=== PATIENT | male | born 1960 | race Caucasian/White ===

== ENCOUNTER 2017-05-30 10:44 | Inpatient (IN) ==
--- NOTE | 2017-05-30 11:06 | Anesthesia Evaluation PreOp ---
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 endartectomy 2015, fem-fem BPG 2013) Alcohol Use: heavy, recent Drug use: none Medications and Allergies Clopidogrel [Plavix] 75 mg PO DAILY #30 tablet 09/25/15 [Rx] Albuterol Sulfate [Ventolin Hfa] 18 gm IH 05/24/17 [History] Aspirin [Lo-Dose Aspirin EC] 81 mg PO 05/24/17 [History] Budesonide/Formoterol 160/4.5 [Symbicort 160/4.5] 2 puff IH BIDR 05/24/17 [ History] Famotidine [Pepcid] 40 mg PO DAILY 05/24/17 [History] Ipratropium/Albuterol Neb [Duoneb] 3 ml IH Q6HR PRN 05/24/17 [History] Metoprolol [Lopressor] 25 mg PO BID 05/24/17 [History] Nitroglycerin [Nitrostat] 0.4 mg SL Q5-6MIN PRN 05/24/17 [History] Oxycodone HCl 5 mg PO Q6H PRN #10 tablet 05/24/17 [Rx] Tiotropium [place] [Spiriva Respimat] 4 gm IH DAILY 05/24/17 [History] 3 Allergy/AdvReac Type Severity Reaction Status Date / Time acetaminophen [From Tylenol] AdvReac Nausea Verified 05/24/17 07:29 - Meds/Allergy Pre-op Review Medications Reviewed: Yes Allergies Reviewed: Yes Beta Blockers on Current Med List: Yes If Beta Blockers taken, Date/Time (Last Dose taken): - @ 1400hrs Anesthesia Results - Labs Laboratory Tests 05/16/17 05/16/17 05/16/17 13:45 13:45 13:45 Hgb 15.3 Hct 45.1 Plt Count 199 PT 11.3 INR 1.1 APTT 31.2 Sodium 144 Potassium 4.8 H BUN 9 Creatinine 0.79 - Imaging EKG: report reviewed (SINUS RHYTHM BORDERLINE RIGHT AXIS DEVIATION) Additional studies: echo 07/01: Impressions: LVEF 45%. Normal LV chamber size and wall thickness. Mild global left ventricular systolic dysfunction. Mild left ventricular diastolic dysfunction. Normal right ventricular structure and function. No evidence of pulmonary hypertension. No significant valvular dysfunction. 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
[2017-05-30] MEDS ORDERED: Vancomycin 1,000 MG VIAL ONE (11:34)
[2017-05-30] MEDS ORDERED: Heparin 1,000 UNITS/500 mL NS 500 ML ONE ×2 (11:34→11:39)
[2017-05-30] MEDS ORDERED: Acetaminophen IV 1,000 MG/100 ML INFUS..BTL ONE (11:35)
[2017-05-30] MEDS ORDERED: Lidocaine -MPF 0.5% 50 ML VIAL ONE (11:35)
[2017-05-30] MEDS ORDERED: Albuterol 2.5 MG/3 ML NEBULIZER IH ONE ×3 (11:38→12:23)
[2017-05-30] MEDS ORDERED: Vancomycin 750 MG in D5% in Water 250 ML IVPB ONE ×3 (11:38→23:30)
[2017-05-30] MEDS ORDERED: CeFAZolin Syr 2,000MG/20 ML 2,000 MG/20 ML SYRINGE IVPB ONE (11:38)
[2017-05-30] MEDS ORDERED: Lidocaine -MPF 1% 2 ML VIAL ID ONE ×2 (11:38→11:56)
[2017-05-30] MEDS ORDERED: Ondansetron 4 MG/2 ML VIAL ONE (11:39)
[2017-05-30] MEDS ORDERED: *HR* Propofol 200 MG/20 ML VIAL IVP ONE (11:39)
[2017-05-30] MEDS ORDERED: *HR* Succinylcholine 200 MG/10 ML VIAL IVP ONE (11:39)
[2017-05-30] MEDS ORDERED: Dexamethasone 4 MG/ML VIAL ONE (11:39)
[2017-05-30] MEDS ORDERED: *HR* Midazolam HCl 2 MG/2 ML VIAL ONE (11:39)
[2017-05-30] MEDS ORDERED: *HR* FentaNYL (PF) 100 MCG/2 ML VIAL ONE (11:40)
[2017-05-30] MEDS ORDERED: Albuterol 2.5 MG/3 ML NEBULIZER ONE (11:43)
[2017-05-30] MEDS ORDERED: Ringers Solution, Lactated 1,000 ML IVC SCH (11:45)
--- NOTE | 2017-05-30 11:49 | History & Physical Report ---
Date of Encounter: 05/30/17 Time of Encounter: 11:45 24 Hour HP Update - Instructions Instructions: If the History and Physical is less than 30 days old and was completed prior to A.M. admission and or procedure and has NOT been updated on calendar day of procedure please complete this update prior to performing procedure. - Update Patient reports changes in Medical Condition: No Changes in examination, assessment, or condition: No Changes in Medication: No Preop tests/diagnostics Reviewed: Yes Surgery Remains Indicated: Yes Consent for Planned Operative Procedure(s) Verified: Yes - Pre-Operative Checklist Preoperative Checklist Indicated: Yes Prophylactic Antibiotic Ordered: Yes (Vancomycin due to MRSA risk) Home Medications Include Beta Radha: Yes Beta Radha Taken Today (Day of Surgery): Yes Beta Radha Taken Yesterday (Day Prior to Surgery): Yes Is VTE Prophylaxis Indicated?: Yes
[2017-05-30] MEDS ORDERED: *HR* Labetalol 100 MG/20 ML MDV ONE (12:15)
[2017-05-30] MEDS ORDERED: Lidocaine -MPF 2% 2 ML VIAL ONE (12:16)
[2017-05-30] MEDS ORDERED: *HR* Labetalol 20 MG/4 ML SYRINGE IVP PRN ×2 (12:23→16:33)
[2017-05-30] MEDS ORDERED: *HR* Meperidine 25 MG/ML SYRINGE IVP PRN (12:23)
[2017-05-30] MEDS ORDERED: *HR* Promethazine 25 MG/ML VIAL IVP PRN (12:23)
[2017-05-30] MEDS ORDERED: *HR* HYDROmorphone (PF) 1 MG/ML SYRINGE IVP PRN (12:23)
[2017-05-30] MEDS: Aspirin 81 MG TAB.CHEW PO ONE ×2 (12:31→12:33)
[2017-05-30] MEDS ORDERED: *HR* Magnesium Sulfate 1 GM/2 ML VIAL ONE (13:31)
[2017-05-30] MEDS ORDERED: Ketorolac 30 MG/ML VIAL ONE (14:02)
--- NOTE | 2017-05-30 14:45 | Anesthesia Procedures ---
Date of Encounter: 05/30/17 Time of Encounter: 12:45 Procedures: Anesthesia - Arterial Line Consent obtained: written consent Time out performed: Yes Sedation: Versed (mg): 2 Supplemental Oxygen via Nasal Cannula (L/min): 2 Technique Used: sterile prep, direct puncture technique Post-Procedure: line taped into place, dry sterile dressing placed Patient tolerated procedure: no complications Complications: none Site: Radial R Vitals: vss Comments: left radial arterial line attempted by SRNA, unsuccessful. Dressing applied. No issues.
--- NOTE | 2017-05-30 15:27 | Operative Note ---
Date of procedure: 05/30/17 Pre-op diagnosis: Peripheral vascular disease with disabling claudication Post-op diagnosis: same Procedure: Right iliofemoral endarterectomy with bovine pericardial patch angioplasty. Complications: None Anesthesia: HALEYA Surgeon: Job Quinn Estimated blood loss (cc): 100 Specimen: right lower extremity plaque Condition: stable Disposition: PACU Procedure in Detail: Indications: The patient is a 56 year old male with a history of diabetes, hypertension, hyperlipidemia, coronary artery disease and tobacco abuse. He was noted to have severe disabling claudication and angiography revealed severe right iliac and femoral artery stenosis. Revascualrization was recommended to reduce his symptoms. Procedure: The patient was identified in the preoperative area. The risks, benefits and alternatives of the procedure were discussed and all questions were answered. The patient was taken to the operating room and placed in the supine position on the operating room table. After the induction of general endotracheal anesthesia, the patient was cleaned and draped in the normal sterile fashion. An oblique incision was made sharply through his prior scar over the right femoral vessels. Hemostasis was obtained with electrocautery. Through a process of blunt, sharp and electrocautery dissection, the distal external iliac , deep and superficial femoral arteries were dissected and surrounded with vessel loops. The patient received a bolus of heparin. After waiting adequate time for the heparin to circulate, the vessels were occluded with the vessel loops. A longitudinal arteriotomy was in the common femoral artery and extended proximally into the distal external iliac artery. The plaque was noted to be firm and have multiple carmela of severe stenosis. An iliofemoral artery endarterectomy were then performed with a dental freer. Proximal and distal endpoints were inspected and no elevated flaps were noted. The vessels were flushed with heparin. A bovine pericardial patch was cut to fit the arteriotomy and was sutured in place with a running 6-0 Prolene suture. Prior to completing the patch, the vessels were flushed and infused with heparinized saline. The patch was completed and flow was restored. A polyphasic signal was identified in the superficial femoral and deep femoral arteries. The wound was irrigated with antibiotic containing saline. Hemostasis was obtained with electrocautery. Platelet rich and platelet poor plasma were infused into the wound. The wound was reapproximated with 2-0 and 3 -0 vicryl. Skin was reapproximated with 3-0 Monocryl. Sterile dressings were applied. The patient was extubated and taken to the recover room in stable condition.
--- NOTE | 2017-05-30 16:14 | Anesthesia Evaluation Post Op ---
Date of Encounter: 05/30/17 Time of Encounter: 16:11 - Vital Signs Vital Signs: Vital Signs/O2 Sat, Most Current Temp Pulse Resp BP Pulse Ox 98.1 F 65 18 147/94 96 05/30/17 15:48 05/30/17 15:58 05/30/17 15:58 05/30/17 15:58 05/30/17 15:58 - Lungs Lungs: Clear Ascult./Percussion - Airway Airway: Non-obstructed - Cardiovascular Regular Rate - Mental Status Mental Status: Alert & Oriented, Answers Appropriately - Pain Pain Scale: 2 Pain Scale used: Numeric (1 - 10) - Nausea Vomiting Nausea Vomiting: Not Present - Hydration Hydration: NPO, Ugarte catheter - Discharge PostOp Status: Transfer Patient to floor
[2017-05-30] MEDS ORDERED: Naloxone 0.4 MG/ML INJ IVP PRN (16:33)
[2017-05-30] MEDS ORDERED: Nitroglycerin 0.4 MG TAB.SUBL SL PRN (16:33)
[2017-05-30] MEDS ORDERED: Ondansetron 4 MG/2 ML VIAL IVP PRN (16:33)
[2017-05-30] MEDS ORDERED: *HR* OxyCODONE Immed Rel 5 MG TABLET PO PRN ×2 (16:33)
[2017-05-30] MEDS ORDERED: Ipratropium/Albuterol Neb 3 ML IH PRN (16:33)
[2017-05-30] MEDS ORDERED: *HR* Morphine 2 MG/ML SYRINGE IVP PRN (16:33)
[2017-05-30] MEDS: CeFAZolin Premix DUPLEX 2,000 MG/50 ML BAG IVPB SCH (17:20)
[2017-05-30] MEDS ORDERED: *HR* Heparin 5,000 UNIT/ML VIAL SQ SCH (18:00)
[2017-05-30] MEDS: *HR* Heparin 5,000 UNIT/ML VIAL SQ SCH (18:11)
[2017-05-30] MEDS: *HR* Metoprolol 5 MG/5 ML VIAL IVP SCH (18:11)
[2017-05-30] MEDS ORDERED: Budesonide/Formoterol 160/4.5 MDI IH SCH (22:00)
[2017-05-31] MEDS: CeFAZolin Premix DUPLEX 2,000 MG/50 ML BAG IVPB SCH (01:03)
[2017-05-31] MEDS: *HR* Metoprolol 5 MG/5 ML VIAL IVP SCH ×2 (01:03→05:59)
[2017-05-31] MEDS: *HR* Heparin 5,000 UNIT/ML VIAL SQ SCH (06:24)
[2017-05-31 06:32] LABS: Basophils % 0.1 %; Hematocrit 39.9 % (37.5-50.1); Hemoglobin 13.8 g/dL (12.9-16.9); Immature Granulocytes % 0.6 % (0-4); Lymphocytes # 1.1 K/mcL (0.6-4.6); Lymphocytes % 14.5 %; Mean Corpuscular HGB Conc 34.6 g/dL (31.6-35.5); Mean Corpuscular Hemoglobin 34.8 pg (28.0-33.3); Mean Corpuscular Volume 100.8 fL (83.0-100.0); Mean Platelet Volume 11.4 fL (9.4-12.4); Monocytes # 0.4 K/mcL (0.0-1.3); Monocytes % 5.6 %; Neutrophils # 6.1 K/mcL (1.6-8.9); Platelet Count 134 K/mcL (140-400); Red Blood Count 3.96 M/mcL (4.19-5.50); Red Cell Distribution Width 14.1 % (11.5-14.5); Segmented Neutrophils % 79.2 %
[2017-05-31 06:42] LABS: BUN/Creatinine Ratio 9 (6-26); Blood Urea Nitrogen 7 mg/dL (8-26); Calcium 8.6 mg/dL (8.6-10.8); Carbon Dioxide 28 mEq/L (19-29); Chloride 102 mEq/L (98-109); Glucose 148 mg/dL (70-99); Osmolality,Calculated 291 (280-300); Potassium 4.3 mEq/L (3.5-4.5); Sodium 140 mEq/L (136-145); eGFR For African Americans > 60 (> 60); eGFR For Non-African Americans > 60 (> 60)
--- NOTE | 2017-05-31 07:16 | Discharge Summary ---
Date of Encounter: 05/31/17 Time of Encounter: 08:20 - Discharge Diagnosis (1) Atherosclerosis of [place] arteries of extremities with intermittent claudication, bilateral legs Priority: Primary Status: Chronic Comments: The patient is postoperative day #1 after a right iliofemoral endarterectomy. He reports that his leg feels better. His wound is healing. His compartments are soft and his pedal signals are present. He will be discharged today. (2) Hyperlipemia, mixed Priority: Secondary Status: Chronic (3) Tobacco abuse Priority: Secondary Status: Chronic (4) Atherosclerosis of [place] coronary artery of [place] heart without angina pectoris Priority: Secondary Status: Chronic (5) Essential hypertension Priority: Secondary Status: Chronic - Discharge Medications Prescriptions: OxyCODONE Immed Rel [Roxicodone 5 MG] 5 mg PO Q6HR PRN #20 tablet PRN Reason: POSTOPERATIVE PAIN Home Medications: Clopidogrel [Plavix] 75 mg PO DAILY #30 tablet 09/25/15 [Rx] Albuterol Sulfate [Ventolin Hfa] 2 puff IH Q4H PRN 05/24/17 [History] Aspirin [Lo-Dose Aspirin EC] 81 mg PO DAILY 05/24/17 [History] Budesonide/Formoterol 160/4.5 [Symbicort 160/4.5] 2 puff IH BIDR 05/24/17 [ History] Famotidine [Pepcid] 40 mg PO DAILY 05/24/17 [History] Ipratropium/Albuterol Neb [Duoneb] 3 ml IH Q6HR PRN 05/24/17 [History] Metoprolol [Lopressor] 25 mg PO BID 05/24/17 [History] Nitroglycerin [Nitrostat] 0.4 mg SL Q5-6MIN PRN 05/24/17 [History] Tiotropium [place] [Spiriva Respimat] 4 gm IH DAILY 05/24/17 [History] Simvastatin [Zocor] 40 mg PO HS 05/30/17 [History] OxyCODONE Immed Rel [Roxicodone 5 MG] 5 mg PO Q6HR PRN #20 tablet 05/31/17 [Rx] Allergies/Adverse Reactions: 3 Allergy/AdvReac Type Severity Reaction Status Date / Time acetaminophen [From Tylenol] AdvReac Nausea Verified 05/30/17 12:22 Date of admission: 05/30/17 16:31 Primary care physician: Saroj Berg MD Procedure(s) Performed: Right iliofemoral endarterectomy. Discharging clinician: Job Quinn Anticipated date of discharge: 05/31/17 - Patient Status Disposition: Home, Self-Care Condition: Good Functional capacity at discharge: independent ambulation Overall status at discharge: patient is back to baseline - Discharge Instructions Instructions: Peripheral Vascular Disorders (GEN) Follow Up With: Saroj Berg MD [Primary Care Provider] - 06/21/17 4:30 pm Job Quinn MD [Partnered Physician] - 06/27/17 1:10 pm Additional Instructions: May remove bandage and shower 06/01/17. Wash wound gently and pat to dry. Apply dry gauze to wound daily for 7 days. No tub baths or swimming until 06/20/17. Call Dr. Quinn at [phone] with questions or concerns. - Diet and Activity Activity: increase activity as tolerated Diet: advance to your usual diet - Hospital Course Hospital course: Mr. Villa is a 56 year old male was admitted on 05/30/17. He underwent a right iliofemoral endarterectomy due to disabling claudication. He tolerated the procedure well and was discharged to home in stable condition on postoperative day #1 without complications. Time spent discussing smoking cessation with patient: 3 to 10 minutes - Time Spent with Patient Total time spent providing and/or coordinating discharge services: Exam Vital Signs, Last 4 Hours Temp Pulse Resp BP Pulse Ox 05/31/17 04:20 54 05/31/17 03:57 98.0 F 57 17 118/57 98 General: Present: Conversant HEENT: Present: Pupils equal Cardiac: Present: Reg Rate and Rhythm Lungs: Present: Normal Breath Sounds Neuro: Present: Alert and responsive, No focal deficits noted, Motor nerves grossly intact, Sensory nerves grossly intact Abdomen: Present: Soft Vascular: Present: Normal capillary refill, Pulse, normal (pedal signals present bilaterally), Edema, Surgical incisions (no erythema, no hematoma). Absent: Cyanosis - VTE Documentation of Mechanical Device: Intermittent pneumatic compression device
[2017-05-31 07:56] VITALS: BP 115/69
[2017-05-31] MEDS ORDERED: Aspirin Enteric Coated 81 MG Tablet PO SCH (09:00)
[2017-05-31] MEDS ORDERED: Tiotropium 18 MCG inhalation IH SCH (09:00)
[2017-05-31] MEDS ORDERED: Famotidine 20 MG TABLET PO SCH (09:00)
== END 2017-05-31 13:05 | disposition home or self-care (01) | DRG 169 ==
LOC: SAMDAY 10:44 → 2NNU 16:31
PROVIDERS: ADMIT Surgery; ATTEND Surgery

== ENCOUNTER 2017-10-10 02:34 | Inpatient (IN) ==
--- NOTE | 2017-10-10 04:02 | Emergency Department Note ---
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 Disposition: Admitted As Inpatient Condition: Undetermined Referrals: Gaurav Villeda MD [Primary Care Provider] - Forms: ED Satisfaction Letter Lower Extremity Injury HPI - General Chief Complaint: ED Extremity Injury, Lower Stated Complaint: right leg pain Time Seen by Provider: 10/10/17 02:41 Source: patient, EMS Mode of arrival: EMS Limitations: no limitations Nursing Notes Reviewed: Yes Vital Signs Reviewed: Yes - History of Present Illness HPI Narrative: 57-year-old patient with a history of one pack per day smoker, hyperlipidemia, altherosclerosis with claudication, hypertension he was status post endocardectomy to ma of the right popliteal on 09/14 Dr. Quinn presents to the emergency department via EMS from [facility] for testing for arterial occlusion of the right lower extremity. Patient reported to by [facility] for evaluation of right foot pain, discoloration, coolness and was seen down there where the provider felt that this was an arterial occlusion and he need to be transferred here for a higher level of care. Patient denies fever, chills, shortness of breath, dyspnea, chest pain, edema, abdominal pain, nausea, vomiting. He has a known history of claudication as well as arthrosclerosis, the endocartectomy to the popliteal was recent and since then patient has been on Plavix as well as some dose aspirin 81 mg, and today had an abrupt onset of the pallor, coolness, decreased blood flow to the right lower extremity. Pt Subjective Complaint: foot injury Injury location: Right foot Onset (ago): hour(s) Mechanism of Injury: unknown Context: other Place: home Improves with: nothing Worsens with: nothing Associated symptoms: Reports: ambulatory - Related Data Home Medications Medication Instructions Recorded Confirmed Albuterol Sulfate [Ventolin Hfa] 2 puff IH Q4H PRN 05/24/17 10/10/17 Aspirin [Lo-Dose Aspirin EC] 81 mg PO DAILY 05/24/17 10/10/17 Budesonide/Formoterol 160/4.5 2 puff IH BIDR 05/24/17 10/10/17 [Symbicort 160/4.5] Ipratropium/Albuterol Neb [Duoneb] 3 ml IH Q6HR PRN 05/24/17 10/10/17 Metoprolol [Lopressor] 25 mg PO BID 05/24/17 10/10/17 Nitroglycerin [Nitrostat] 0.4 mg SL Q5-6MIN PRN 05/24/17 10/10/17 Tiotropium [place] [Spiriva 4 gm IH DAILY 05/24/17 10/10/17 Respimat] Atorvastatin [Lipitor] 40 mg PO HS 09/13/17 10/10/17 Budesonide/Formoterol 160/4.5 2 puff IH BIDR 10/10/17 10/10/17 [Symbicort 160/4.5] Fluticasone/Vilanterol [Breo 1 each IH DAILY 10/10/17 10/10/17 Ellipta 200-25 Mcg INH] Previous Rx's Medication Instructions Recorded Clopidogrel [Plavix] 75 mg PO DAILY #30 tablet 09/25/15 Allergies Allergy/AdvReac Type Severity Reaction Status Date / Time acetaminophen [From Tylenol] AdvReac Nausea Verified 09/13/17 09:11 All systems ED: reviewed and negative except as stated. Review of Systems: As Per HPI Constitutional: Denies: fever, chills, weakness, weight change Cardiovascular: Denies: chest pain, palpitations, dyspnea on exertion, edema, syncope Integumentary: Reports: other (Discoloration of right lower extremity, right foot) Neurological: Reports: numbness, paresthesias (Right foot) Past Medical History - Past Medical History Attestation: Yes The following information was validated with the patient. Source: patient Medical history: Reports: COPD, coronary artery disease, GERD, hyperlipidemia, hypertension, myocardial infarction, other Surgical history: Reports: herniorrhaphy Psychiatric history: Reports: anxiety, depression - Social History Smoking Status: Current every day smoker Smokeless Tobacco Status: No Alcohol use: Reports: heavy, recent Drug use: Reports: none Physical Exam - General Limitations: no limitations General appearance: alert Course Course Narrative: 57-year-old patient with a history of one pack per day smoker, hyperlipidemia, altherosclerosis with claudication, hypertension he was status post endocardectomy to ma of the right popliteal on 09/14 Dr. Quinn presents to the emergency department via EMS from [facility] for testing for arterial occlusion of the right lower extremity. Patient reported to [facility] for evaluation of right foot pain, discoloration, coolness and was seen down there where the provider felt that this was an arterial occlusion and he need to be transferred here for a higher level of care. Patient denies fever, chills, shortness of breath, dyspnea, chest pain, edema, abdominal pain, nausea, vomiting. He has a known history of claudication as well as arthrosclerosis, the endocartectomy to the popliteal was recent and since then patient has been on Plavix as well as some dose aspirin 81 mg, and today had an abrupt onset of the pallor, coolness, decreased blood flow to the right lower extremity. Patient arrived with EMS already on heparin. Well-hydrated male who appears older than stated age in no acute distress. Respirations are easy and even. right foot and ankle with obvious pallor, coolness, inability to locate pulses in DP, TB. We will CTA with runoff as well as ABIs to assess for malocclusion. Prior to patient arriving at our emergency department attending Dr. Miranda spoke with Dr. Fernandez We will bleed there was an occlusion, wanted him started on heparin and that that shows surgery will see him in the morning. - Reevaluation(s) Reevaluation #1: ABIs show severely diminished with right 00.30, left than 1.02. CTA with runoff shows occlusion to right iliac stent, SFA as well as SFA distally. Patient states he would like to go home, educated extensively regarding inability to go home until he sees fascial surgery. Patient reluctantly agrees and discussed the smoking, we will order to do patch at this time. Hospitalist paged for admission. Time: 04:40 Reevaluation #2: Hospitals on for this time, patient right extremity with more color, slightly warmer. Heparin continuous MPs. Hospitalist will admit until vascular surgery able to see. Time: 05:36 Vital Signs Temperature 98 F 10/10/17 02:40 Pulse Rate 83 10/10/17 02:40 Respiratory Rate 28 10/10/17 02:40 Blood Pressure 117/80 10/10/17 02:40 O2 Sat by Pulse Oximetry 95 10/10/17 02:40 Temperature 98 F 10/10/17 02:40 Pulse Rate 80 10/10/17 03:49 Respiratory Rate 20 10/10/17 03:49 Blood Pressure 122/85 10/10/17 03:49 O2 Sat by Pulse Oximetry 96 10/10/17 03:49 Oxygen Delivery Oxygen Delivery Room Air Extremity Injury, Lower - Medical Records Medical records reviewed: Yes I reviewed the patient's medical records. - Lab Data Lab results reviewed: Yes I reviewed the patient's lab results. - Radiology Data Radiology results reviewed: Yes I reviewed the patient's radiology results.
[2017-10-10] MEDS ORDERED: Ipratropium/Albuterol Neb 3 ML IH PRN (05:35)
[2017-10-10] MEDS ORDERED: Naloxone 0.4 MG/ML INJ IVP PRN (05:37)
[2017-10-10] MEDS: Nicotine 21 MG PATCH.TD24 TD SCH ×2 (05:41→09:26)
--- NOTE | 2017-10-10 05:44 | Internal Med History&Physical ---
Date of Encounter: 10/10/17 Time of Encounter: 05:41 Assessment and Plan (1) Acute occlusion of artery of lower extremity due to thrombosis Current visit: No Status: Acute History of PAD, multiple stents, now with acute stent thrombosis. Discussed case extensively with ED physician who had communicated with Dr. Escobar of vascular surgery who will evaluate in the morning. Recommended heparin drip with clinical improvement. Continue dual antiplatelet therapy (2) Essential hypertension Current visit: No Status: Chronic continue med (3) Hyperlipemia, mixed Current visit: No Status: Chronic continue statin (4) Tobacco abuse Current visit: No Status: Chronic Internal Medicine - H&P: HPI Chief complaint: Right foot pain and numbness History of present illness: Mr. Villa is a 57 year old male with a history of severe PAD, hypertension, hyperlipidemia who presents with acute onset ischemic right leg secondary to stent thrombosis. Patient has a long history of peripheral vascular disease status post multiple revascularization procedure. Was most recently seen by Dr. Quinn as of vascular surgery with, Right iliofemoral endarterectomy, Right deep femoral artery endarterectomy, Right lower extremity thrombectomy with 4 [place] catheter on 09/13/17. Patient developed acute pain on the right leg and foot with paresthesia since approximately 7 PM last evening which led to ED presentation. There were concerns for acute ischemic limb. Pain did not improve with time but later got better with heparin drip. Pain rated 10 out of 10, sharp, associated with paresthesia of the foot with decreased foot pulses. Of note patient has been intermittently compliant on dual antiplatelet therapy and has been occasionally taking Plavix alone. CT/CT angio aorta w con runoff IMPRESSION: Multifocal atherosclerotic disease with new occlusion of the right external iliac stent and SFA. There is also a new occlusion of the left SFA with distal reconstitution. Limited evaluation of the infrapopliteal vessels, likely due to contrast bolus. Unchanged thickening of the gastric antrum and pylorus which can be seen with gastritis. Past Med Surg Social Fam HX - Past Medical History Medical history: COPD, coronary artery disease, GERD, hyperlipidemia, hypertension, myocardial infarction, other Psychiatric history: anxiety, depression - Past Surgical History Surgical History: herniorrhaphy - Social History Smoking Status: Current every day smoker Smokeless Tobacco Status: No Alcohol use: heavy, recent Drug use: none - Additional Family History Additional family history: Hypertension Internal Medicine - H&P: Meds Clopidogrel [Plavix] 75 mg PO DAILY #30 tablet 09/25/15 [Rx] Albuterol Sulfate [Ventolin Hfa] 2 puff IH Q4H PRN 05/24/17 [History] Aspirin [Lo-Dose Aspirin EC] 81 mg PO DAILY 05/24/17 [History] Budesonide/Formoterol 160/4.5 [Symbicort 160/4.5] 2 puff IH BIDR 05/24/17 [ History] Ipratropium/Albuterol Neb [Duoneb] 3 ml IH Q6HR PRN 05/24/17 [History] Metoprolol [Lopressor] 25 mg PO BID 05/24/17 [History] Nitroglycerin [Nitrostat] 0.4 mg SL Q5-6MIN PRN 05/24/17 [History] Tiotropium [place] [Spiriva Respimat] 4 gm IH DAILY 05/24/17 [History] Atorvastatin [Lipitor] 40 mg PO HS 09/13/17 [History] Budesonide/Formoterol 160/4.5 [Symbicort 160/4.5] 2 puff IH BIDR 10/10/17 [ History] Fluticasone/Vilanterol [Breo Ellipta 200-25 Mcg INH] 1 each IH DAILY 10/10/17 [ History] 3 Allergy/AdvReac Type Severity Reaction Status Date / Time acetaminophen [From Tylenol] AdvReac Nausea Verified 09/13/17 09:11 All Systems PM: A 10-system review of systems was performed and is negative for pertinent findings except as documented above in the HPI. Review of systems: ROS 14 point review of systems reviewed as best as possible given presentation. Pertinent positive or negative as per HPI or otherwise reviewed as negative - Constitutional Vitals: Temp Pulse Resp BP Pulse Ox 98 F 80 18 99/76 97 10/10/17 02:40 10/10/17 05:40 10/10/17 05:40 10/10/17 05:40 10/10/17 05:40 Exam: General - AAO x 3 Psych - Appropriate affect/speech. No agitation Eyes - GAETANO. Eye lids intact. No scleral icterus Heart - Sinus. RRR. S1 and S2 present. No added HS/murmurs appreciated. No elevated JVD appreciated. Lung - Adequate air entry b/l, No crackles/wheezes appreciated GI - Soft, non-tender. No hepatosplenomegaly/ascites. BS+ - No CVA/suprapubic tenderness or palpable bladder distension Skin, PVD - Diminish right foot pulses with right Toes appears cool. Altered sensation, paresthesia of right leg from burdick downwards. Internal Med - H&P Results - Impressions ITS Impressions Aorta w/Runoff CTA 10/10/17 02:55 IMPRESSION: Multifocal atherosclerotic disease with new occlusion of the right external iliac stent and SFA. There is also a new occlusion of the left SFA with distal reconstitution. Limited evaluation of the infrapopliteal vessels, likely due to contrast bolus. Unchanged thickening of the gastric antrum and pylorus which can be seen with gastritis. D/ / Jimbo Kelley MD / Jimbo Kelley MD Interpreting Provider: Jimbo Kelley MD
[2017-10-10] MEDS ORDERED: *HR* Heparin 5,000 UNIT/ML VIAL IVP ONE (06:43)
[2017-10-10] MEDS ORDERED: *HR* Heparin 5,000 UNIT/ML VIAL IVP PRN ×2 (06:43)
[2017-10-10] MEDS ORDERED: Heparin 25,000 UNIT/500 ML D5W 25,000 UNIT/500 ML BAG IVC SCH (06:45)
--- NOTE | 2017-10-10 06:49 | Emergency Department Note ---
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 Disposition: Admitted As Inpatient Condition: Undetermined Referrals: Gaurav Villeda MD [Primary Care Provider] - Lower Extremity Injury [facility] - General Chief Complaint: ED Extremity Injury, Lower Stated Complaint: right leg pain Time Seen by Provider: 10/10/17 02:41 Source: patient, EMS Mode of arrival: EMS Limitations: no limitations Nursing Notes Reviewed: Yes Vital Signs Reviewed: Yes - History of Present Illness Context: other Place: home Improves with: nothing Worsens with: nothing Associated symptoms: Reports: ambulatory - Related Data Home Medications Medication Instructions Recorded Confirmed Albuterol Sulfate [Ventolin Hfa] 2 puff IH Q4H PRN 05/24/17 10/10/17 Aspirin [Lo-Dose Aspirin EC] 81 mg PO DAILY 05/24/17 10/10/17 Budesonide/Formoterol 160/4.5 2 puff IH BIDR 05/24/17 10/10/17 [Symbicort 160/4.5] Ipratropium/Albuterol Neb [Duoneb] 3 ml IH Q6HR PRN 05/24/17 10/10/17 Metoprolol [Lopressor] 25 mg PO BID 05/24/17 10/10/17 Nitroglycerin [Nitrostat] 0.4 mg SL Q5-6MIN PRN 05/24/17 10/10/17 Tiotropium [place] [Spiriva 4 gm IH DAILY 05/24/17 10/10/17 Respimat] Atorvastatin [Lipitor] 40 mg PO HS 09/13/17 10/10/17 Budesonide/Formoterol 160/4.5 2 puff IH BIDR 10/10/17 10/10/17 [Symbicort 160/4.5] Fluticasone/Vilanterol [Breo 1 each IH DAILY 10/10/17 10/10/17 Ellipta 200-25 Mcg INH] Previous Rx's Medication Instructions Recorded Clopidogrel [Plavix] 75 mg PO DAILY #30 tablet 09/25/15 Allergies Allergy/AdvReac Type Severity Reaction Status Date / Time acetaminophen [From Tylenol] AdvReac Nausea Verified 09/13/17 09:11 Constitutional: Denies: fever, chills, weakness, weight change Cardiovascular: Denies: chest pain, palpitations, dyspnea on exertion, edema, syncope Integumentary: Reports: other (Discoloration of right lower extremity, right foot) Neurological: Reports: numbness, paresthesias (Right foot) Past Medical History - Past Medical History Medical history: Reports: COPD, coronary artery disease, GERD, hyperlipidemia, hypertension, myocardial infarction, other Surgical history: Reports: herniorrhaphy Psychiatric history: Reports: anxiety, depression - Social History Smoking Status: Current every day smoker Smokeless Tobacco Status: No Alcohol use: Reports: heavy, recent Drug use: Reports: none Physical Exam - General Limitations: no limitations General appearance: alert Course Vital Signs Temperature 98 F 10/10/17 02:40 Pulse Rate 83 10/10/17 02:40 Respiratory Rate 28 10/10/17 02:40 Blood Pressure 117/80 10/10/17 02:40 O2 Sat by Pulse Oximetry 95 10/10/17 02:40 Temperature 98 F 10/10/17 02:40 Pulse Rate 80 10/10/17 05:40 Respiratory Rate 18 10/10/17 05:40 Blood Pressure 99/76 10/10/17 05:40 O2 Sat by Pulse Oximetry 97 10/10/17 05:40 Oxygen Delivery Oxygen Delivery Room Air Attestation Statement - Attestation Attestation: I, Gaurav Miranda, examined this patient and my medical decision-making was reviewed with the COST ESTIMATING CLERK/PA/Advanced Practice Nurse/Resident Physician. I agree with the documented findings, disposition and treatment plan as described except to the extent set forth below. 57-year-old male brought to the emergency department from [facility] for further evaluation of likely acute arterial occlusion. I received a call from [facility] describing a pulseless cold right lower extremity that had decreased sensation and no pulse found by Doppler. Patient had recent femoral endarterectomy performed by Dr. Quinn one month ago. He developed acute onset of pain at 7 PM. He is been taking Plavix at home but no other blood thinners. After receiving the call and the patient was still on his way to the hospital I called Dr. Escobar who is on for vascular and described the patient's case and my concerns for an acute arterial occlusion and need for acute surgery. Patient is currently on heparin which was started at an outside facility. Vascular surgeon recommended to continue heparin and evaluate the right lower extremity by RENETTA and CT angiogram of the aorta with runoff for comparison to his previous study. During the evaluation the patient did start to recover normal skin color and sensation to the right lower extremity. Patient was admitted to the hospitalist for further care and evaluation.
[2017-10-10 07:26] LABS: Hematocrit 47.3 % (37.5-50.1); Mean Corpuscular HGB Conc 33.8 g/dL (31.6-35.5); Mean Corpuscular Hemoglobin 33.9 pg (28.0-33.3); Mean Corpuscular Volume 100.2 fL (83.0-100.0); Mean Platelet Volume 11.7 fL (9.4-12.4); Platelet Count 214 K/mcL (140-400); Red Blood Count 4.72 M/mcL (4.19-5.50); Red Cell Distribution Width 14.2 % (11.5-14.5)
[2017-10-10 07:38] LABS: Prothrombin Time 10.7 Seconds (9.4-12.1)
[2017-10-10 07:41] LABS: Activated Partial Thrombo Time 72.8 Seconds (26.0-36.0)
[2017-10-10] MEDS ORDERED: ceFAZolin 2,000 MG in Water for inj. (sterile) 20 ML IVP ONE (09:00)
[2017-10-10] MEDS ORDERED: Breo Ellipta 200-25 Mcg IH SCH (09:00)
[2017-10-10] MEDS ORDERED: Aspirin Enteric Coated 81 MG Tablet PO SCH (09:00)
[2017-10-10] MEDS ORDERED: Nicotine 21 MG PATCH.TD24 TD SCH (09:00)
[2017-10-10] MEDS ORDERED: Tiotropium 18 MCG inhalation IH SCH (09:00)
--- NOTE | 2017-10-10 11:56 | Vascular/Endovasc Consult Note ---
Date of Encounter: 10/10/17 Time of Encounter: 08:45 Assessment and Plan (1) Tobacco abuse Current Visit: Yes Status: Chronic Patient has ongoing tobacco abuse. He was warned that this will lead to further graft thrombosis and eventual limb loss. (2) Essential hypertension Current Visit: Yes Status: Chronic Patient has medical treatment ongoing for hypertension. (3) Arterial occlusion due to arteriosclerosis Current Visit: Yes Status: Acute Recurrent occlusion of right iliofemoral system with severe disease apparently of the right superficial femoral artery. This is now the second recurrence with thrombosis of this right groin which has been operated on 3 times. The overall prognosis remains poor. I suggested that we continue the IV heparin for now. Patient will be taken to surgery later today as an emergency and an attempt at thrombectomy of this area. The patient may require bypass grafting that could include a right femoral-popliteal, a left to right femoral-femoral bypass graft, or an right iliofemoral bypass graft. - History of Present Illness Consult date: 10/10/17 Consult reason: Recurrent right lower extremity ischemia Chief complaint: Right leg pain and numbness History of present illness: Mr. Villa is a 57 year old male Was seen in the emergency room this morning. I was notified of the patient at 1 :30 this morning by the ER as they were in the process of excepting in transferring him from [facility]. Patient states that he had abrupt onset of right lower extremity pain at approximately 7 or 8 PM last night. He states he was sitting in his chair drinking a beer when this occurred. He called his mother a few hours later and then by squad he was taken to the [facility] ER. They could not identify pulse in the right lower extremity and so then the patient was transferred to [facility]. The patient has a very complex and disturbing history of severe lower extremity ischemia. He had an angiogram performed in July 2015 and then in September 2015 underwent a right iliofemoral endarterectomy with patch angioplasty. The patient also had a right external iliac stent placed but the timing of the stent is unclear from the medical record. Then in early May the patient had recurrent symptoms he underwent another angiogram in May 2017. He then went back to the operating room on May 30 for a right iliofemoral endarterectomy with a bovine pericardial patch. Then the patient re-presented to the clinic in August with more right lower extremity symptoms. He was then taken back to the operating room for a right iliofemoral endarterectomy, fundus M is artery endarterectomy, and right lower extremity catheter thrombectomy. All of these procedures and angiogram were performed by Dr. Quinn. This is the first time I met this gentleman. Noninvasive testing today reveals an ankle-brachial index of 0.3 at the right posterior tibial artery and no signal over the dorsalis pedis artery area on the left side the ankle-brachial indexes measured at 1.02. The patient went on to have an aortogram with runoff by CT angiography this morning. I reviewed these images. They demonstrate occlusion of the right external iliac artery stent and right common femoral artery. There is also occlusion of the proximal half to two thirds of the right superficial femoral artery and poor flow through the profunda femoris artery. There is reconstitution of the [id number] popliteal. The patient states that since he was placed on heparin and transferred to [facility] that he has had less pain and numbness though the right foot remains abnormal. Past Med Surg Social Fam HX - Past Medical History Medical history: COPD, coronary artery disease, GERD, hyperlipidemia, hypertension, myocardial infarction, other Psychiatric history: anxiety, depression - Past Surgical History Surgical History: herniorrhaphy, LE stent(s) (Right external iliac artery stent) , vascular surgery (Right iliofemoral endarterectomy with patching and thrombectomy beginning in September 2015, May 2017, and his final operation was in August 2017.) - Social History Smoking Status: Current every day smoker Packs per day: 1 Smokeless Tobacco Status: No Alcohol use: heavy, recent Drug use: none - Family History Father Hx Family Cardiac Disorders: Yes Medications and Allergies Clopidogrel [Plavix] 75 mg PO DAILY #30 tablet 09/25/15 [Rx] Albuterol Sulfate [Ventolin Hfa] 2 puff IH Q4H PRN 05/24/17 [History] Metoprolol [Lopressor] 25 mg PO BID 05/24/17 [History] Nitroglycerin [Nitrostat] 0.4 mg SL Q5-6MIN PRN 05/24/17 [History] Tiotropium [place] [Spiriva Respimat] 4 gm IH DAILY 05/24/17 [History] Cilostazol [Pletal] 100 mg PO BID 10/10/17 [History] Fluticasone/Vilanterol [Breo Ellipta 200-25 Mcg INH] 1 puff IH DAILY 10/10/17 [ History] Ibuprofen [Ibuprofen] 800 mg PO TID PRN 10/10/17 [History] Simvastatin [Zocor] 40 mg PO DAILY 10/10/17 [History] Varenicline Tartrate [Chantix Starting Month NAZARIO] 1 tab PO BID 10/10/17 [History ] 3 Allergy/AdvReac Type Severity Reaction Status Date / Time acetaminophen [From Tylenol] AdvReac Nausea Verified 10/10/17 07:52 All Systems Review: The remainder of the systems were reviewed and are negative Exam Vital Signs, Last 4 Hours Temp Pulse Resp BP Pulse Ox 10/10/17 10:06 97.6 F 77 16 141/93 95 General: Present: Conversant, No Apparent Distress, Other (The patient is an ill -appearing white male who looks older than his stated age. He appears significantly malnourished.) HEENT: Present: Atraumatic, Normocephaly Neck: Present: Right Carotid bruit. Absent: JVD, Left Carotid bruit, Midline deformity, Tracheal deviation Cardiac: Present: Reg Rate and Rhythm, Normal S1 and S2, No Murmur Lungs: Present: Decreased breath sounds Neuro: Present: Alert and responsive, No focal deficits noted, Cranial nerves grossly intact Abdomen: Present: Soft, Non-tender. Absent: Masses Vascular: Present: Pulse, absent (I am unable to palpate popliteal or pedal pulses bilaterally. I am unable to palpate a right femoral pulse. The patient does have a left femoral pulse. There is a left femoral bruit.), Other ( Patient has marked muscle wasting of the calf and thighs bilaterally. The right foot is cool but not cold. The patient is able to move the toes and foot and ankle.). Absent: Edema (No lower extremity edema.) Consult Discharge Plan - Plan Referrals: Gaurav Villeda MD [Primary Care Provider] -
--- NOTE | 2017-10-10 16:45 | Anesthesia Evaluation PreOp ---
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 HX Other Medical History: Hepatic (Heavy daily alcohol use.), GERD Anesthesia History: No Prior Anesthetic Complications, Past Anesthesia Alcohol Use: heavy, recent Drug use: none Medications and Allergies Clopidogrel [Plavix] 75 mg PO DAILY #30 tablet 09/25/15 [Rx] Albuterol Sulfate [Ventolin Hfa] 2 puff IH Q4H PRN 05/24/17 [History] Metoprolol [Lopressor] 25 mg PO BID 05/24/17 [History] Nitroglycerin [Nitrostat] 0.4 mg SL Q5-6MIN PRN 05/24/17 [History] Tiotropium [place] [Spiriva Respimat] 4 gm IH DAILY 05/24/17 [History] Cilostazol [Pletal] 100 mg PO BID 10/10/17 [History] Fluticasone/Vilanterol [Breo Ellipta 200-25 Mcg INH] 1 puff IH DAILY 10/10/17 [ History] Ibuprofen [Ibuprofen] 800 mg PO TID PRN 10/10/17 [History] Simvastatin [Zocor] 40 mg PO DAILY 10/10/17 [History] Varenicline Tartrate [Chantix Starting Month ] 1 tab PO BID 10/10/17 [History ] 3 Allergy/AdvReac Type Severity Reaction Status Date / Time acetaminophen [From Tylenol] AdvReac Nausea Verified 10/10/17 07:52 - Meds/Allergy Pre-op Review Medications Reviewed: Yes Allergies Reviewed: Yes Beta Blockers on Current Med List: Yes (last dose 0900) Anesthesia Results - Labs 10/10/17 06:54 - Imaging EKG: image reviewed (sinus rhythm) Anesthesia Exam Selected Entries 10/10/17 14:55 Temperature 98.2 F Pulse Rate 93 Respiratory Rate 13 Blood Pressure 152/101 O2 Sat by Pulse Oximetry 95 Weight: 48 kg NPO (# of Hours): over 8 hours - HEENT Pupil (Motor): Pupils equal Teeth: Edentulous Oral Opening: Greater than 3 - Cardiac Rhythm: Regular Murmur: None - Pulmonary Breath Sounds: bilateral Clear Respiratory Effort: Symmetrical Anesthesia Assess/Plan ASA Score: 3, E Modified [place] Scale for Level of Consciousness: Cooperative, oriented, and tranquil Anesthetic Plan: General Monitoring Plan: Standard Monitors, A-Line Recovery Plan: PACU (Discussed GA, radial art line. Agreed to proceed.)
[2017-10-10] MEDS ORDERED: Albuterol 2.5 MG/3 ML NEBULIZER IH ONE (16:47)
[2017-10-10] MEDS ORDERED: Heparin 1,000 UNITS/500 mL 1,000 ML ONE (16:59)
[2017-10-10] MEDS ORDERED: *HR* Midazolam HCl 2 MG/2 ML VIAL ONE ×2 (17:15→23:00)
[2017-10-10] MEDS ORDERED: *HR* FentaNYL (PF) 100 MCG/2 ML VIAL ONE ×4 (17:15→19:44)
[2017-10-10] MEDS ORDERED: Dexamethasone 4 MG/ML VIAL ONE (17:58)
[2017-10-10] MEDS ORDERED: Lidocaine -MPF 2% 2 ML VIAL ONE (17:58)
[2017-10-10] MEDS ORDERED: Ondansetron 4 MG/2 ML VIAL ONE (17:58)
[2017-10-10] MEDS ORDERED: *HR* Propofol 200 MG/20 ML VIAL IVP ONE (17:58)
[2017-10-10] MEDS ORDERED: *HR* Succinylcholine 200 MG/10 ML VIAL IVP ONE (17:58)
--- NOTE | 2017-10-10 18:00 | Event Note ---
Date of Encounter: 10/10/17 Time of Encounter: 17:58 (1) Acute occlusion of artery of lower extremity due to thrombosis History of PAD, multiple stents, now with acute stent thrombosis. Cont heparin gtt, DAPT. Vascular consulted (2) Essential hypertension per hx. BP somewhat elevated, possibly secondary to acute pain. Continue home BP medication. Monitor BP and titrate PRN (3) Hyperlipemia, mixed continue statin (4) Tobacco abuse Current smoker, cessation advised
[2017-10-10] MEDS ORDERED: Lidocaine -MPF 4% 5 ML AMPUL ONE (18:01)
--- NOTE | 2017-10-10 18:04 | Anesthesia Procedures ---
Date of Encounter: 10/10/17 Time of Encounter: 17:30 Procedures: Anesthesia - Arterial Line Consent obtained: written consent Time out performed: Yes Sedation: Versed (mg): 2 Sedation: Fentanyl (mcg): 2 Supplemental Oxygen via Nasal Cannula (L/min): 2 Amount of Anesthetic used (mls): 2 Size (Gauge): 20 Length (inches): 1 3/4 Technique Used: guide wire technique Post-Procedure: line taped into place Patient tolerated procedure: no complications Complications: none Site: Radial R Comments: After sterile prep and drape and local anesthetic infiltration, a left radial arterial line was attempted. Although brisk arterial blood was obtained multiple times, the guide wire could not be threaded. After 3 attempts, a right radial arterial line was placed without difficulty in the first attempt. The patient tolerated the procedure well.
[2017-10-10] MEDS ORDERED: *HR* PHENYLEPHRINE 1,000 MCG/10 ML SYRINGE IVP ONE (18:26)
[2017-10-10] MEDS ORDERED: EPHEDrine 50 MG/ML VIAL ONE (19:06)
[2017-10-10] MEDS ORDERED: *HR* Heparin 5,000 UNIT/ML VIAL ONE (19:32)
[2017-10-10] MEDS ORDERED: Protamine Sulfate 50 MG/5 ML VIAL IVP ONE (21:19)
[2017-10-10] MEDS ORDERED: MORPHINE SUL Oral CONC 10 MG/0.5 ML ORAL.SYG SL PRN (22:14)
[2017-10-10] MEDS ORDERED: *HR* HYDROmorphone 2 MG TABLET PO PRN (22:14)
[2017-10-10] MEDS ORDERED: Ketorolac 30 MG/ML VIAL IVP ONE (22:14)
[2017-10-10] MEDS ORDERED: *HR* Promethazine 25 MG/ML VIAL IVP PRN (22:14)
[2017-10-10] MEDS ORDERED: Ondansetron 4 MG/2 ML VIAL IVP ONE (22:14)
--- NOTE | 2017-10-10 22:15 | Operative Note ---
Date of procedure: 10/10/17 Pre-op diagnosis: recurrent ischemia of right leg Post-op diagnosis: same Procedure: redo right femoral/popliteal thrombectomy left femoral endarterectomy left femoral -right AK popliteal bypass graft with 6 mm PTFE Distaflo Complications: none Anesthesia: GETA Surgeon: Sohail Escobar Was there an fiscal assistant present: No Estimated blood loss (cc): 450 Specimen: none Condition: stable Disposition: PACU Procedure in Detail: History Mr. Villa is a 57-year-old white male with a very complicated lower extremity vascular history. He presented to the emergency room early this morning with abrupt onset of right lower extremity pain and numbness last night while sitting at home. Noninvasive studies and CT angiogram demonstrate reocclusion of the right external iliac artery stent and right common femoral artery and proximal right superficial femoral artery. The patient has had multiple interventions including angiography and stent placement in [address] Quinn beginning in September 2015 and then again in May 2017 and then finally in August 2017. Despite these repeated interventions the patient has had recurrent thromboses and ischemia of the right lower extremity. The patient now comes to the operating room as a near final attempt to try to salvage this right lower extremity. Procedure After informed consent was obtained the patient was taken the operating room. General endotracheal anesthesia was established. The abdomen and groin and right lower extremity were sterilely prepped and draped. A timeout protocol was observed. The right groin was entered through the previous surgical incision. A very thick and dense and confluent mass affect was encountered. The patch in some of the Prolene sutures could be identified but the anatomy was obliterated. Difficulty in dissection and potential damage to underlying vein and adjacent nerves led me to abandon any hope of trying to perform a direct redo procedure for yet a fourth time in this right groin. Therefore alternative is necessary in a desperate limb salvage situation. Therefore a second incision was then made at the [id number] popliteal. Dissection was carried down to reveal this small and diseased artery. Doppler signals were demonstrated that there was flow. The patient was given a bolus of heparin and after 3 minutes the above-knee popliteal artery was opened in a longitudinal fashion. No thrombus was found at this location. A 4 Kinyarwanda Belen catheter was passed distally for a distance of 40 cm without obtaining any clot and demonstrated spontaneous backflow. Packs and the catheter proximally however a combination of both acute and chronic thrombus and atherosclerotic material was removed. A 3 Kinyarwanda Belen catheter was then used to advance more proximally and then a combination of using both the 3 and 4 Kinyarwanda Belen catheter allowed a re-thrombectomy of the right femoral- popliteal system. The catheter wouldn't pass up to the level of the common femoral artery but would not pass into the occluded right external iliac artery stent. Therefore the inflow could not be secured at this location. Thus in an attempt to restore inflow into the right leg the patient would need either an iliac inflow from the right common iliac artery or across pelvis inflow from the left femoral artery. It was judged prudent at this time to proceed with the femoral aspect. Therefore an incision was made in the left groin. Dissection was carried down to identify the common femoral artery which was controlled. It demonstrated significant plaque on the posterior nature of the vessel but there was a palpable pulse. An arteriotomy was then made on the common femoral artery. An endarterectomy was then performed of the common femoral artery. Backflushing was performed of the superficial femoral and profunda femoris arteries. A 6 mm PTFE graft was selected. This was passed and a cross femoral tunnel as deeply as possible and then in a right lower extremity subsartorial tunnel. The distal anastomosis to the ptmtr-viy-socv popliteal artery on the right side was performed first in an end to side fashion. Next the graft was trimmed to length and the proximal anastomosis was performed on the left common femoral artery over the area that had been endarterectomized. The cord of the proximal anastomosis was used as a patch over the endarterectomized vessel. After appropriate backbleeding and flushing the graft was opened and pulsatile flow was now resumed and returned to the right lower extremity via the left common femoral artery. The patient demonstrated biphasic Doppler signals at the dorsalis pedis and posterior tibial artery at the right ankle. The wounds were then irrigated and hemostasis achieved. The wounds were then closed in layers using absorbable suture. Dry sterile dressings were applied. There were no intraoperative complications. The patient was taken from the operating room to the recovery room in stable condition.
[2017-10-10] MEDS: *HR* FentaNYL (PF) 100 MCG/2 ML VIAL IVP PRN ×2 (22:50→22:56)
[2017-10-10] MEDS: *HR* Midazolam HCl 2 MG/2 ML VIAL IVP PRN ×2 (23:00→23:45)
--- NOTE | 2017-10-11 00:09 | Anesthesia Evaluation Post Op ---
Date of Encounter: 10/11/17 Time of Encounter: 00:08 - Vital Signs Vital Signs: Vital Signs/O2 Sat, Most Current Temp Pulse Resp BP Pulse Ox 98.2 F 70 22 155/95 100 10/10/17 23:06 10/10/17 23:36 10/10/17 23:36 10/10/17 23:36 10/10/17 23:36 - Lungs Lungs: Clear Ascult./Percussion - Airway Airway: Non-obstructed - Cardiovascular Regular Rate - Mental Status Mental Status: Alert & Oriented, Answers Appropriately - Pain Pain Scale: 0 Pain Scale used: Numeric (1 - 10) - Nausea Vomiting Nausea Vomiting: Not Present - Hydration Hydration: NPO, Ugarte catheter - Discharge PostOp Status: Transfer Patient to floor
[2017-10-11] MEDS ORDERED: *HR* Labetalol 20 MG/4 ML SYRINGE IVP PRN (00:13)
[2017-10-11] MEDS ORDERED: *HR* LORazepam 2 MG/ML VIAL IVP PRN ×6 (01:17→03:51)
[2017-10-11 01:54] LABS: Basophils % 0.2 %; Hemoglobin 12.6 g/dL (12.9-16.9); Immature Granulocytes % 0.8 % (0-4); Lymphocytes # 1.3 K/mcL (0.6-4.6); Lymphocytes % 11.1 %; Mean Corpuscular Hemoglobin 35.2 pg (28.0-33.3); Mean Corpuscular Volume 100.6 fL (83.0-100.0); Mean Platelet Volume 11.1 fL (9.4-12.4); Monocytes # 0.4 K/mcL (0.0-1.3); Neutrophils # 10.2 K/mcL (1.6-8.9); Platelet Count 190 K/mcL (140-400); Red Blood Count 3.58 M/mcL (4.19-5.50); Red Cell Distribution Width 13.9 % (11.5-14.5); Segmented Neutrophils % 84.9 %
[2017-10-11 02:15] LABS: BUN/Creatinine Ratio 10 (6-26); Blood Urea Nitrogen 6 mg/dL (6-20); Calcium 7.9 mg/dL (8.6-10.3); Carbon Dioxide 22 mEq/L (23-29); Chloride 103 mEq/L (98-107); Chol/HDL Ratio 2.3 (0-4.9); Cholesterol 130 mg/dL (< 200); Glucose 236 mg/dL (70-105); HDL Cholesterol 56 mg/dL (40-59); LDL Cholesterol,Calculated 57 mg/dL (0-99); Osmolality,Calculated 281 (280-300); Potassium 4.2 mEq/L (3.5-5.1); Sodium 133 mEq/L (136-145); Triglycerides 86 mg/dL (< 150); eGFR For African Americans > 60 (> 60); eGFR For Non-African Americans > 60 (> 60)
[2017-10-11] MEDS ORDERED: Ondansetron 4 MG/2 ML VIAL IVP PRN (03:08)
[2017-10-11] MEDS ORDERED: Acetaminophen 325 MG TABLET PO PRN (03:08)
[2017-10-11] MEDS ORDERED: Ipratropium/Albuterol Neb 3 ML IH PRN (03:08)
[2017-10-11] MEDS ORDERED: Nitroglycerin 0.4 MG TAB.SUBL SL PRN (03:08)
[2017-10-11] MEDS ORDERED: *HR* HYDROcodone/Acet 5/325 mg TABLET PO PRN (03:08)
[2017-10-11] MEDS ORDERED: Ibuprofen 800 MG TABLET PO PRN (03:08)
[2017-10-11] MEDS ORDERED: Naloxone 0.4 MG/ML INJ IVP PRN ×2 (03:08)
[2017-10-11] MEDS: CeFAZolin Premix DUPLEX 2,000 MG/50 ML BAG IVPB SCH ×2 (03:43→10:51)
[2017-10-11] MEDS: Vitamin B Complex/Vit C/Vit E 1 EACH TABLET PO SCH (07:44)
[2017-10-11] MEDS: Thiamine (B-1) 100 MG TABLET PO SCH (07:44)
[2017-10-11] MEDS: Nicotine 21 MG PATCH.TD24 TD SCH (07:45)
[2017-10-11] MEDS: Aspirin Enteric Coated 81 MG Tablet PO SCH (07:45)
[2017-10-11] MEDS: Folic Acid 1 MG TABLET PO SCH (07:45)
[2017-10-11] MEDS: Breo Ellipta 200-25 Mcg IH SCH (07:46)
[2017-10-11] MEDS: Tiotropium 18 MCG inhalation IH SCH (07:52)
--- NOTE | 2017-10-11 08:03 | Electrocardiograph Report ---
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
[2017-10-11] MEDS ORDERED: Vitamin B Complex/Vit C/Vit E 1 EACH TABLET PO SCH (09:00)
[2017-10-11] MEDS ORDERED: Folic Acid 1 MG TABLET PO SCH (09:00)
[2017-10-11] MEDS ORDERED: Thiamine (B-1) 100 MG TABLET PO SCH (09:00)
[2017-10-11] MEDS ORDERED: *HR* OxyCODONE Immed Rel 5 MG TABLET PO PRN (10:31)
--- NOTE | 2017-10-11 10:37 | Internal Med Progress Note ---
Date of Encounter: 10/11/17 Time of Encounter: 10:34 - Assessment and plan (1) Atherosclerosis of [place] arteries of extremities with intermittent claudication, bilateral legs Current Visit: No Status: Chronic Assessment and plan: per hx. Presented with acute onset of right lower extremity pain. Bilateral lower extremity CTA with reocclusion of the right external iliac artery stent, right common femoral artery and proximal right superficial femoral artery. Heparin gtt started in ED. S/p revascularization with redo right femoral/ popliteal thrombectomy, left femoral endarterectomy and left femoral -right [place] popliteal bypass graft on 10/10/[address] Escobar. Cont home ASA< pletal, plavix , statin. Vascular following (2) Postoperative anemia due to acute blood loss Current Visit: Yes Status: Acute Assessment and plan: Hgb 16 on arrival and dropped to 12.6 post-operatively. No active bleeding. OR danuta reviewed and approx 450mL blood loss noted. Hemodynamically stable. Heparin drip stopped. Check occult stool, monitor repeat H&H. Transfuse for Hgb less than 8. (3) Alcohol abuse Current Visit: Yes Status: Acute Assessment and plan: daily drinker; drinks 2-40oz beers daily. Monitor with CIWA (4) Essential hypertension Current Visit: Yes Status: Chronic Assessment and plan: per hx. BP controlled. Cont home BP medication. Monitor BP and titrate PRN (5) Tobacco abuse Current Visit: Yes Status: Chronic Assessment and plan: Current smoker, cessation advised (6) DVT prophylaxis Current Visit: Yes Status: Acute Assessment and plan: SCD - Subjective Interval history: Seen and examined at bedside. He is complaining of bilateral leg pain, right worse than left. Secondary to invasive procedure. No alleviating factors, activity/movement worsens pain. No chest pain or shortness of breath. No active bleeding. Ambulated earlier this morning with assistance. - Constitutional Vitals: Temp Pulse Resp BP Pulse Ox 97.6 F 74 16 124/88 100 10/11/17 07:16 10/11/17 07:16 10/11/17 07:53 10/11/17 07:16 10/11/17 07:53 General appearance: Present: mild distress (Appears uncomfortable), A&O X 3 - Head Head exam: Present: atraumatic, normocephalic - Eye Eye exam: Present: PERRL, conjuntiva pink, sclera anicteric Pupils: Present: PERRL - Neck Neck exam general surgery: Present: supple, trachea midline. Absent: lymphadenopathy - Respiratory Respiratory exam: Present: CTAB. Absent: accessory muscle use, rales, rhonchi, wheezes - Cardiovascular Cardiovascular exam: Present: RRR, +S1, +S2. Absent: diastolic murmur, gallop, rubs, systolic murmur - GI/Abdominal GI/Abdominal exam: Present: normal bowel sounds, soft, no peritoneal signs. Absent: distended, tenderness - Extremities Exam Extremities exam: Present: warm, radial pulses palpable and symmetrical. Absent : calf tenderness, cyanotic, pedal edema - Neurological Exam Neurological exam: Present: CN II-XII intact, oriented X3, no focal deficits. Absent: pronater drift, facial droop, speech deficit - Skin Skin exam: Present: dry, intact - Expanded Skin Exam Full body front and back image: 1 - s/p fem-pop bypass site with dressing C/D/I 2 - moderate shadowing Internal Medicine: Result - Labs CBC & Chem 7: 10/11/17 01:40 10/11/17 01:40 Labs: Short CBC 10/11/17 Range/Units 01:40 WBC 12.0 H D (4.3-11.1) K/mcL Hgb 12.6 L D (12.9-16.9) g/dL Hct 36.0 L (37.5-50.1) % Plt Count 190 (140-400) K/mcL Neutrophils # 10.2 H (1.6-8.9) K/mcL BMP 10/11/17 01:40 Sodium 133 L Potassium 4.2 Chloride 103 Carbon Dioxide 22 L BUN 6 Creatinine 0.60 L Glucose 236 H Calcium 7.9 L - ABG Interpretation ABG results: PT/INR, D-dimer PT 10.7 Seconds (9.4-12.1) 10/10/17 06:54 - VTE Documentation of Mechanical Device: Intermittent pneumatic compression device Consult Discharge Plan - Plan Referrals: Ronal,Gaurav Payton MD [Primary Care Provider] - 10/20/17 9:00 am Sohail Escobar MD [Partnered Physician] - 11/01/17 2:45 pm
[2017-10-11] MEDS: *HR* OxyCODONE Immed Rel 5 MG TABLET PO PRN ×2 (10:50→22:00)
--- NOTE | 2017-10-11 12:24 | Vascular/Endovas Progress Note ---
Date of Encounter: 10/11/17 Time of Encounter: 12:22 - Assessment and plan (1) Tobacco abuse Current Visit: Yes Status: Chronic Patient has ongoing tobacco abuse. He was warned that this will lead to further graft thrombosis and eventual limb loss. (2) Essential hypertension Current Visit: Yes Status: Chronic Patient has medical treatment ongoing for hypertension. 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 Patient may liberalize his physical activities. Due to the nature of his past disease and the present bypass graft the patient will need to be anticoagulated with Xarleto which will be started today. - Subjective Interval history: Patient is postoperative day #1 from an extensive revascularization for limb threatening ischemia of the right lower extremity. The patient had a left common femoral to right above-knee popliteal artery bypass graft as well as thrombectomies and endarterectomy. On the visit today the patient complains of some incisional pain. The right foot is feeling warmer. He has no right foot pain. Vital Signs, Last 4 Hours Temp Pulse Resp BP Pulse Ox 10/11/17 11:06 97.8 F 75 18 108/72 95 - Physical Examination General: Present: Conversant Vascular: Present: Color/Temperature (Right foot is warm and pink. Dramatic improvement from preoperative status.), Surgical incisions (Dressings are intact on the 3 surgical incisions.), Other (Patient has Doppler signals 3 at the right ankle.). Absent: Edema Abdomen: Present: Soft Skin: Present: No rashes noted on visualized skin - VTE Documentation of Mechanical Device: Intermittent pneumatic compression device Results 10/11/17 01:40 10/11/17 01:40 Lab Results, Last 24 hours 10/10/17 10/11/17 10/11/17 13:43 01:40 01:40 WBC 12.0 H D Hgb 12.6 L D Hct 36.0 L Plt Count 190 APTT 70.6 H Sodium 133 L Potassium 4.2 Chloride 103 Carbon Dioxide 22 L BUN 6 Creatinine 0.60 L Glucose 236 H Calcium 7.9 L 10/11/17 01:40 WBC Hgb Hct Plt Count APTT 27.9 D Sodium Potassium Chloride Carbon Dioxide BUN Creatinine Glucose Calcium Consult Discharge Plan - Plan Referrals: [facility] [place],Gaurav Payton MD [Primary Care Provider] - 10/20/17 9:00 am Sohail Escobar MD [Partnered Physician] - 11/01/17 2:45 pm
[2017-10-11] MEDS ORDERED: *HR* Rivaroxaban 10 MG TABLET PO SCH (17:00)
[2017-10-11] MEDS ORDERED: CeFAZolin Pre 2,000 MG/100 ML 2,000 MG/100 ML BAG IVPB SCH (18:15)
[2017-10-11] MEDS ORDERED: ceFAZolin 2,000 MG in D5% in Water 100 ML IVPB SCH (19:00)
[2017-10-11] MEDS ORDERED: Dexmedetomidine HCl 400 MCG/100 ML MLS IVC SCH (22:15)
[2017-10-11] MEDS ORDERED: Dexmedetomidine HCl 400 MCG/100 ML MLS IVC ONE (22:21)
[2017-10-11] MEDS ORDERED: 0.9 % Sodium Chloride 1,000 ML ONE (22:21)
[2017-10-12 04:54] LABS: Hematocrit 27.6 % (37.5-50.1); Mean Corpuscular HGB Conc 34.4 g/dL (31.6-35.5); Mean Corpuscular Hemoglobin 33.8 pg (28.0-33.3); Mean Corpuscular Volume 98.2 fL (83.0-100.0); Mean Platelet Volume 11.6 fL (9.4-12.4); Platelet Count 123 K/mcL (140-400); Red Blood Count 2.81 M/mcL (4.19-5.50); Red Cell Distribution Width 14.7 % (11.5-14.5)
[2017-10-12 04:55] LABS: Hemoglobin 9.5 g/dL (12.9-16.9)
[2017-10-12 05:13] LABS: BUN/Creatinine Ratio 11 (6-26); Blood Urea Nitrogen 6 mg/dL (6-20); Calcium 7.9 mg/dL (8.6-10.3); Carbon Dioxide 27 mEq/L (23-29); Chloride 104 mEq/L (98-107); Glucose 100 mg/dL (70-105); Osmolality,Calculated 278 (280-300); Potassium 3.4 mEq/L (3.5-5.1); Sodium 135 mEq/L (136-145); eGFR For African Americans > 60 (> 60); eGFR For Non-African Americans > 60 (> 60)
[2017-10-12] MEDS ORDERED: 0.9 % Sodium Chloride 1,000 ML IVC ONE (09:09)
[2017-10-12] MEDS: Breo Ellipta 200-25 Mcg IH SCH (09:19)
--- NOTE | 2017-10-12 09:19 | Vascular/Endovas Progress Note ---
Date of Encounter: 10/12/17 Time of Encounter: 08:30 - Assessment and plan (1) Tobacco abuse Current Visit: Yes Status: Chronic Patient has ongoing tobacco abuse. He was warned that this will lead to further graft thrombosis and eventual limb loss. (2) Essential hypertension Current Visit: Yes Status: Chronic Patient has medical treatment ongoing for hypertension. 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 Patent left femoral to right above-knee popliteal artery bypass graft. Patient has significant confusion. - Subjective Interval history: Patient is postoperative day #2 from an extensive revascularization for limb threatening ischemia of the right lower extremity. The patient had a left common femoral to right above-knee popliteal artery bypass graft as well as thrombectomies and endarterectomy. The patient became more agitated and confused yesterday. He is gone on the alcohol withdrawal protocol beginning yesterday. This morning he still remains very confused and drowsy and not cooperative. Vital Signs, Last 4 Hours Temp Pulse Resp BP Pulse Ox 10/12/17 07:08 98.6 F 80 22 75/48 95 10/12/17 05:55 98.1 F 86 16 89/76 93 - Physical Examination General: Present: Other (Patient is lying in bed. He is very drowsy and when awoken is confused.) HEENT: Present: Atraumatic Vascular: Present: Color/Temperature (The right foot is warm and pink.), Surgical incisions (The surgical incisions are clean and dry.), Other (The patient has Doppler signals 3 at the right ankle that are multiphasic.) - VTE Documentation of Mechanical Device: Intermittent pneumatic compression device Results 10/12/17 04:32 10/12/17 04:32 Lab Results, Last 24 hours 10/12/17 10/12/17 04:32 04:32 WBC 9.4 Hgb 9.5 L D Hct 27.6 L Plt Count 123 L Sodium 135 L Potassium 3.4 L Chloride 104 Carbon Dioxide 27 BUN 6 Creatinine 0.55 L Glucose 100 Calcium 7.9 L Consult Discharge Plan - Plan Referrals: Job Quinn MD [Partnered Physician] - 10/25/17 1:00 pm myrna,Gaurav Payton MD [Primary Care Provider] - 10/20/17 9:00 am
[2017-10-12] MEDS: Tiotropium 18 MCG inhalation IH SCH (09:58)
[2017-10-12] MEDS: Vitamin B Complex/Vit C/Vit E 1 EACH TABLET PO SCH (10:05)
[2017-10-12] MEDS: Thiamine (B-1) 100 MG TABLET PO SCH (10:05)
[2017-10-12] MEDS: Folic Acid 1 MG TABLET PO SCH (10:05)
[2017-10-12] MEDS: Aspirin Enteric Coated 81 MG Tablet PO SCH (10:05)
[2017-10-12] MEDS: Nicotine 21 MG PATCH.TD24 TD SCH (10:06)
--- NOTE | 2017-10-12 10:21 | Internal Med Progress Note ---
Date of Encounter: 10/12/17 Time of Encounter: 10:20 - Assessment and plan (1) Atherosclerosis of [place] arteries of extremities with intermittent claudication, bilateral legs Current Visit: No Status: Chronic Assessment and plan: hx recurrent thromboses and ischemia of the right lower extremity. Presented with acute onset of right lower extremity pain. Bilateral lower extremity CTA with reocclusion of the right external iliac artery stent, right common femoral artery and proximal right superficial femoral artery. Heparin gtt started in ED. S/p revascularization with right femoral/popliteal thrombectomy, left femoral endarterectomy and left femoral -right [place] popliteal bypass graft on 10/[address] Escobar. Cont home ASA, pletal, plavix, statin.. Discussed with Dr. Escobar and patient will need to be on anticoagulation once acute anemia resolved (see below). Vascular following (2) Postoperative anemia due to acute blood loss Current Visit: Yes Status: Acute Assessment and plan: Hgb 16 on arrival and dropped to 9.5 post-operatively. No active bleeding. OR notes reviewed and approx 450mL blood loss noted during right lower extremity revascularization.. Hypotensive but hemodynamically stable. Xarelto stopped. Bedside occult stool negative. Concerned for possible retroperitoneal bleed with complicated right femoral bypass. Monitor H&H Q4 hr, transfuse for Hgb less than 8. ABD CT pending to assess for bleeding source. (3) Alcohol abuse Current Visit: Yes Status: Acute Assessment and plan: daily drinker; patient reports drinking 2-3 40 ounce beers daily however I suspect he drinks more than this. Required Precedex drip overnight on 10/11 for CIWA scores in the 20s. Stop Precedex with hypotension, continue to monitor with CIWA and PRN ativan. (4) Essential hypertension Current Visit: Yes Status: Chronic Assessment and plan: per hx. BP was controlled, now hypotensive with SBP's in 70s to 80s. No tachycardia, hemodynamically stable. Holding home BB. Monitor BP and resume as BP allows. (5) Tobacco abuse Current Visit: Yes Status: Chronic Assessment and plan: Current smoker, cessation advised but not likely (6) DVT prophylaxis Current Visit: Yes Status: Acute Assessment and plan: SCD. - Subjective Interval history: Seen and examined at bedside; he is drowsy but easy to arouse. Complains of right leg pain, does not quantify or describe pain. Discussed case with Dr. Mantilla regarding persistent anemia, hypotension and concern for retroperitoneal bleed. Will closlyu monitor vital signs, H&H. Check ABD CT with run off to assess for retroperitoneal bleed. - Constitutional Vitals: Temp Pulse Resp BP Pulse Ox 98.6 F 77 22 87/61 94 10/12/17 07:08 10/12/17 09:36 10/12/17 09:36 10/12/17 09:36 10/12/17 09:36 General appearance: Present: A&O X 2, mild distress (Appears uncomfortable), A& O X 3 - Head Head exam: Present: atraumatic, normocephalic - Eye Eye exam: Present: PERRL, conjuntiva pink, sclera anicteric Pupils: Present: PERRL - Neck Neck exam general surgery: Present: supple, trachea midline. Absent: lymphadenopathy - Respiratory Respiratory exam: Present: CTAB. Absent: accessory muscle use, rales, rhonchi, wheezes - Cardiovascular Cardiovascular exam: Present: RRR, +S1, +S2. Absent: diastolic murmur, gallop, rubs, systolic murmur - GI/Abdominal GI/Abdominal exam: Present: normal bowel sounds, soft, no peritoneal signs. Absent: distended, tenderness - Extremities Exam Extremities exam: Present: warm. Absent: calf tenderness, cyanotic, pedal edema Additional comments: Bilateral groin incisions clean, dry, intact. Well approximated with surrounding erythema and ecchymosis. No obvious hematoma. Right inner thigh incision clean, dry, intact and well approximated with surrounding erythema and ecchymosis. Bilateral pedal pulses weak but palpable. - [place]ison Incision: Present: red, erythema, approximated - Neurological Exam Neurological exam: Present: CN II-XII intact, oriented X3, no focal deficits. Absent: pronater drift, facial droop, speech deficit - Skin Skin exam: Present: dry, intact Internal Medicine: Result - Labs CBC & Chem 7: 10/12/17 04:32 10/12/17 04:32 Labs: Short CBC 10/12/17 Range/Units 04:32 WBC 9.4 (4.3-11.1) K/mcL Hgb 9.5 L D (12.9-16.9) g/dL Hct 27.6 L (37.5-50.1) % Plt Count 123 L (140-400) K/mcL BMP 10/12/17 04:32 Sodium 135 L Potassium 3.4 L Chloride 104 Carbon Dioxide 27 BUN 6 Creatinine 0.55 L Glucose 100 Calcium 7.9 L - ABG Interpretation ABG results: PT/INR, D-dimer PT 10.7 Seconds (9.4-12.1) 10/10/17 06:54 - VTE Documentation of Mechanical Device: Intermittent pneumatic compression device Consult Discharge Plan - Plan Referrals: Job Quinn MD [Partnered Physician] - 10/25/17 1:00 pm Ronal,Gaurav Payton MD [Primary Care Provider] - 10/20/17 9:00 am
[2017-10-12] MEDS: 0.9 % Sodium Chloride 1,000 ML IVC SCH ×2 (10:44→23:30)
[2017-10-12 10:45] LABS: Hematocrit 28.1 % (37.5-50.1); Hemoglobin 9.4 g/dL (12.9-16.9)
[2017-10-12] MEDS ORDERED: Potassium Chloride Elixir 20 MEQ/15 ML UDC PO ONE (11:10)
[2017-10-12] MEDS ORDERED: 0.9 % Sodium Chloride 250 ML ONE (17:52)
[2017-10-12 18:16] LABS: Hematocrit 28.3 % (37.5-50.1); Hemoglobin 9.6 g/dL (12.9-16.9)
[2017-10-12 22:34] LABS: Hematocrit 35.1 % (37.5-50.1)
[2017-10-12 22:35] LABS: Hemoglobin 12.3 g/dL (12.9-16.9)
[2017-10-13 04:29] LABS: Hematocrit 33.6 % (37.5-50.1); Hemoglobin 11.5 g/dL (12.9-16.9); Mean Corpuscular HGB Conc 34.2 g/dL (31.6-35.5); Mean Corpuscular Hemoglobin 33.7 pg (28.0-33.3); Mean Corpuscular Volume 98.5 fL (83.0-100.0); Mean Platelet Volume 12.2 fL (9.4-12.4); Platelet Count 121 K/mcL (140-400); Red Blood Count 3.41 M/mcL (4.19-5.50); Red Cell Distribution Width 15.7 % (11.5-14.5)
[2017-10-13 04:51] LABS: BUN/Creatinine Ratio 9 (6-26); Blood Urea Nitrogen 5 mg/dL (6-20); Calcium 8.3 mg/dL (8.6-10.3); Carbon Dioxide 25 mEq/L (23-29); Chloride 104 mEq/L (98-107); Glucose 94 mg/dL (70-105); Osmolality,Calculated 281 (280-300); Potassium 3.3 mEq/L (3.5-5.1); Sodium 137 mEq/L (136-145); eGFR For African Americans > 60 (> 60); eGFR For Non-African Americans > 60 (> 60)
[2017-10-13] MEDS: Tiotropium 18 MCG inhalation IH SCH (07:22)
[2017-10-13] MEDS: Breo Ellipta 200-25 Mcg IH SCH (08:03)
[2017-10-13] MEDS ORDERED: Potassium Chloride Elixir 20 MEQ/15 ML UDC PO ONE (08:16)
[2017-10-13] MEDS: Aspirin Enteric Coated 81 MG Tablet PO SCH (08:33)
[2017-10-13] MEDS: Folic Acid 1 MG TABLET PO SCH (08:33)
[2017-10-13] MEDS: Thiamine (B-1) 100 MG TABLET PO SCH (08:33)
[2017-10-13] MEDS: Vitamin B Complex/Vit C/Vit E 1 EACH TABLET PO SCH (08:33)
[2017-10-13] MEDS: Nicotine 21 MG PATCH.TD24 TD SCH (08:34)
[2017-10-13 11:55] LABS: Hematocrit 33.8 % (37.5-50.1); Hemoglobin 11.6 g/dL (12.9-16.9)
--- NOTE | 2017-10-13 12:07 | Vascular/Endovas Progress Note ---
Date of Encounter: 10/13/17 Time of Encounter: 11:45 - Assessment and plan (1) Tobacco abuse Current Visit: Yes Status: Chronic Patient has ongoing tobacco abuse. He was warned that this will lead to further graft thrombosis and eventual limb loss. (2) Essential hypertension Current Visit: Yes Status: Chronic Patient has medical treatment ongoing for hypertension. 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 The right foot appears to be very well-perfused at this time. Patient's agitation and confusion appears resolved. From a vascular surgery standpoint the patient may have his activities liberalized. He may be discharged when cleared by the medical service. Recommend that the patient be placed on Xarleto attending milligrams a day when he is discharged. He is to follow-up with Dr. Quinn as an outpatient in the vascular surgery clinic. - Subjective Interval history: Patient is postoperative day #3 from an extensive revascularization for limb threatening ischemia of the right lower extremity. The patient had a left common femoral to right above-knee popliteal artery bypass graft as well as thrombectomies and endarterectomy. The patient is awake and alert this morning. He is not confused or combative or agitated. He states his right leg feels better. He has discomfort at the surgical sites. Vital Signs, Last 4 Hours Temp Pulse Resp BP Pulse Ox 10/13/17 10:39 98.2 F 120 16 107/83 99 10/13/17 10:09 98.0 F 126 20 119/81 98 10/13/17 08:41 119 10/13/17 08:12 122 20 123/90 98 - Physical Examination General: Present: Conversant, No Apparent Distress HEENT: Present: Atraumatic Vascular: Present: Normal capillary refill, Pulse, normal, Color/Temperature ( Right foot is warm and pink.), Surgical incisions (Patient has dry dressings over surgical incisions). Absent: Cyanosis, Edema Abdomen: Present: Soft, Non-tender. Absent: Masses Skin: Present: No rashes noted on visualized skin - VTE Documentation of Mechanical Device: Intermittent pneumatic compression device Results 10/13/17 11:35 10/13/17 03:35 Lab Results, Last 24 hours 10/12/17 10/12/17 10/12/17 13:52 18:04 22:25 WBC Hgb 10.0 L 9.6 L 12.3 L D Hct 30.0 L 28.3 L 35.1 L Plt Count Sodium Potassium Chloride Carbon Dioxide BUN Creatinine Glucose Calcium 10/13/17 10/13/17 10/13/17 03:35 03:35 11:35 WBC 10.5 Hgb 11.5 L 11.6 L Hct 33.6 L 33.8 L Plt Count 121 L Sodium 137 Potassium 3.3 L Chloride 104 Carbon Dioxide 25 BUN 5 L Creatinine 0.54 L Glucose 94 Calcium 8.3 L Consult Discharge Plan - Plan Referrals: Job Quinn MD [Partnered Physician] - 10/25/17 1:00 pm Gaurav Villeda MD [Primary Care Provider] - 10/20/17 9:00 am
[2017-10-13] MEDS: 0.9 % Sodium Chloride 1,000 ML IVC SCH ×2 (12:47→20:04)
--- NOTE | 2017-10-13 13:32 | Internal Med Progress Note ---
<Mika Stanley - Last Filed: 10/13/17 13:29> Date of Encounter: 10/13/17 Time of Encounter: 13:29 - Assessment and plan (1) Atherosclerosis of [place] arteries of extremities with intermittent claudication, bilateral legs Current Visit: Yes Status: Chronic Assessment and plan: CTA aorta with run off on admission showed: Multifocal atherosclerotic disease with new occlusion of the right external iliac stent and SFA. There is also a new occlusion of the left SFA with distal reconstitution. POD 3 redo right femoral/popliteal thrombectomy left femoral endarterectomy left femoral -right [place] popliteal bypass graft with 6 mm PTFE Distaflo repeat CTA: 1. Moderate aortoiliac atherosclerotic disease. Occluded right external iliac artery. There is a 50-70% stenosis of the external iliac artery on the left, likely resulting in compromise to the inflow. 2. The newly placed fem fem and right fem-pop graft are widely patent. 3. No focal popliteal disease on the right. Two-vessel runoff distally. 4. Diffuse left SFA disease with 8 cm occluded segment in the mid SFA. Diffusely narrowed reconstituted SFA and popliteal artery. Three-vessel runoff. 5. No acute findings within the abdomen or pelvis. pedal pulses intact Cap refill <2sec vascular surgery okay to discharge patient. Patient will start xarleto at discharge. continue aspirin, plavix, statin since patient will be on triple therapy at home start omeprazole at discharge. (2) Postoperative anemia due to acute blood loss Current Visit: Yes Status: Resolved Assessment and plan: resolved. received 2 units [facility] no source found BP stable hgb stable (3) Alcohol abuse Current Visit: Yes Status: Chronic Assessment and plan: continue ciwa protocol (4) DVT prophylaxis Current Visit: Yes Status: Chronic Assessment and plan: heparin SQ (5) Essential hypertension Current Visit: Yes Status: Chronic Assessment and plan: controlled. patient sinus tachy today will start on low dose metoprolol (6) Tobacco abuse Current Visit: Yes Status: Chronic Assessment and plan: patient educated on smoking cessation and how it will worsen his PAD (7) Protein calorie malnutrition Current Visit: Yes Status: Chronic Assessment and plan: BMI 17 eats one meal a day drinks ensure TID nutrition following patient educated on low fat, low cholesterol high protein diet. Qualifiers: Protein-calorie malnutrition severity: moderate Qualified Code(s): E44.0 - Moderate protein-calorie malnutrition - Subjective Interval history: Patient reports no acute overnight events. He feels less weak. He denies headache, chest pain, sob, abdominal pain. He is tolerating his diet but has poor appetitie. At home he only eats one meal a day and drinks ensure. He refuses to have evaluation by PT/OT and does not want to go to [facility] for rehab if recommended. Patient is unable to get up to bedside without assistance. Vascular surgery recommended patient to be started on xeralto at discharge. He is high fall risk and bleed risk. - Constitutional Vitals: Temp Pulse Resp BP Pulse Ox 98.2 F 130 18 116/75 97 10/13/17 10:39 10/13/17 12:53 10/13/17 12:50 10/13/17 12:50 10/13/17 12:50 General appearance: Present: mild distress (Appears uncomfortable), A&O X 3 - Other Additional findings: General: plesant without distress, cacectic HEENT: dry mucous membranes Heart: sinus tachycardia Lungs: diminished with wheezing b/l. Abdomen: Soft nontender, nondistended positive bowel sounds Skin: warm and dry, b/l LE incisions intact, without drainage Extremities: Absent pedal edema, Neuro: alert oriented x3 Vascular: Pedal and radial pulses 2 out of 4 Internal Medicine: Result - Labs CBC & Chem 7: 10/13/17 11:35 10/13/17 03:35 Labs: Short CBC 10/12/17 10/12/17 10/12/17 Range/Units 13:52 18:04 22:25 WBC (4.3-11.1) K/mcL Hgb 10.0 L 9.6 L 12.3 L D (12.9-16.9) g/dL Hct 30.0 L 28.3 L 35.1 L (37.5-50.1) % Plt Count (140-400) K/mcL 10/13/17 10/13/17 Range/Units 03:35 11:35 WBC 10.5 (4.3-11.1) K/mcL Hgb 11.5 L 11.6 L (12.9-16.9) g/dL Hct 33.6 L 33.8 L (37.5-50.1) % Plt Count 121 L (140-400) K/mcL BMP 10/13/17 03:35 Sodium 137 Potassium 3.3 L Chloride 104 Carbon Dioxide 25 BUN 5 L Creatinine 0.54 L Glucose 94 Calcium 8.3 L - ABG Interpretation ABG results: PT/INR, D-dimer PT 10.7 Seconds (9.4-12.1) 10/10/17 06:54 - Impressions Impressions Aorta w/Runoff CTA 10/12/17 10:04 IMPRESSION: 1. Moderate aortoiliac atherosclerotic disease. Occluded right external iliac artery. There is a 50-70% stenosis of the external iliac artery on the left, likely resulting in compromise to the inflow. 2. The newly placed fem fem and right fem-pop graft are widely patent. 3. No focal popliteal disease on the right. Two-vessel runoff distally. 4. Diffuse left SFA disease with 8 cm occluded segment in the mid SFA. Diffusely narrowed reconstituted SFA and popliteal artery. Three-vessel runoff. 5. No acute findings within the abdomen or pelvis. D/ / 10/12/2017 15:06:22 Binu Estevez MD / Candy Soto Interpreting Provider: Binu Estevez MD - VTE Documentation of Mechanical Device: Intermittent pneumatic compression device Consult Discharge Plan - Plan Referrals: Job Quinn MD [Partnered Physician] - 10/25/17 1:00 pm [facility] [place],Gaurav Payton MD [Primary Care Provider] - 10/20/17 9:00 am <Alan Mantilla - Last Filed: 10/13/17 19:37> Date of Encounter: 10/13/17 - Constitutional Vitals: Temp Pulse Resp BP Pulse Ox 99.7 F H 123 21 124/70 97 10/13/17 19:12 10/13/17 19:12 10/13/17 19:12 10/13/17 19:12 10/13/17 19:12 Internal Medicine: Result - Labs CBC & Chem 7: 10/13/17 11:35 10/13/17 03:35 Labs: Short CBC 10/12/17 10/13/17 10/13/17 Range/Units 22:25 03:35 11:35 WBC 10.5 (4.3-11.1) K/mcL Hgb 12.3 L D 11.5 L 11.6 L (12.9-16.9) g/dL Hct 35.1 L 33.6 L 33.8 L (37.5-50.1) % Plt Count 121 L (140-400) K/mcL BMP 10/13/17 03:35 Sodium 137 Potassium 3.3 L Chloride 104 Carbon Dioxide 25 BUN 5 L Creatinine 0.54 L Glucose 94 Calcium 8.3 L - ABG Interpretation ABG results: PT/INR, D-dimer PT 10.7 Seconds (9.4-12.1) 10/10/17 06:54 - Attending Attestation I performed a [id number] diagnostic evaluation of this patient and my medical decision-making was reviewed with the Resident Physician, Dr Mika Stanley. I agree with the documented findings, disposition and treatment plan as described except to the extent set forth below. Physical exam: Gen: NAD, AAOx3 Heart: RRR, S1S2, no murmurs Lungs: CTABL Abdomen: S, NT, + bowel sounds Hold heparin subcutaneous use for DVT prophylaxis due to concern for possible bleed given the patient is hypotensive and tachycardic and required 2 units of blood. Will use SCDs for DVT prophylaxis. Additional diagnosis: Moderate protein calorie malnutrition. Plan: Nutritional supplement. Liberalize diet. Dietary consult. Alan Mantilla MD
[2017-10-13] MEDS: *HR* OxyCODONE Immed Rel 5 MG TABLET PO PRN (14:38)
[2017-10-13] MEDS ORDERED: *HR* Heparin 5,000 UNIT/ML VIAL SQ SCH (18:00)
[2017-10-14 04:52] LABS: Hematocrit 30.7 % (37.5-50.1); Hemoglobin 10.4 g/dL (12.9-16.9); Mean Corpuscular HGB Conc 33.9 g/dL (31.6-35.5); Mean Corpuscular Hemoglobin 33.2 pg (28.0-33.3); Mean Corpuscular Volume 98.1 fL (83.0-100.0); Mean Platelet Volume 11.8 fL (9.4-12.4); Platelet Count 122 K/mcL (140-400); Red Blood Count 3.13 M/mcL (4.19-5.50); Red Cell Distribution Width 15.5 % (11.5-14.5)
[2017-10-14 05:05] LABS: Alanine Aminotransferase 12 Units/L (7-52); Albumin 2.4 g/dL (3.5-5.7); Alkaline Phosphatase 42 Units/L (34-104); Aspartate Amino Transferase 39 Units/L (13-39); BUN/Creatinine Ratio 12 (6-26); Bilirubin,Total 0.8 mg/dL (0.3-1.0); Blood Urea Nitrogen 6 mg/dL (6-20); Calcium 7.8 mg/dL (8.6-10.3); Carbon Dioxide 24 mEq/L (23-29); Chloride 109 mEq/L (98-107); Globulin 2.3 g/dL (2.4-3.5); Glucose 91 mg/dL (70-105); Osmolality,Calculated 279 (280-300); Potassium 3.1 mEq/L (3.5-5.1); Sodium 136 mEq/L (136-145); Total Protein 4.7 g/dL (6.4-8.9); eGFR For African Americans > 60 (> 60); eGFR For Non-African Americans > 60 (> 60)
[2017-10-14] MEDS: Tiotropium 18 MCG inhalation IH SCH (08:05)
[2017-10-14] MEDS: Nicotine 21 MG PATCH.TD24 TD SCH (09:04)
[2017-10-14] MEDS: Folic Acid 1 MG TABLET PO SCH (09:04)
[2017-10-14] MEDS: Breo Ellipta 200-25 Mcg IH SCH (09:05)
[2017-10-14] MEDS: Vitamin B Complex/Vit C/Vit E 1 EACH TABLET PO SCH (09:05)
[2017-10-14] MEDS: Aspirin Enteric Coated 81 MG Tablet PO SCH (09:05)
[2017-10-14] MEDS: Thiamine (B-1) 100 MG TABLET PO SCH (09:05)
[2017-10-14] MEDS: 0.9 % Sodium Chloride 1,000 ML IVC SCH ×2 (09:06→22:25)
--- NOTE | 2017-10-14 13:04 | Internal Med Progress Note ---
<Carlos Hinojosa - Last Filed: 10/14/17 16:24> Date of Encounter: 10/14/17 Time of Encounter: 12:45 - Assessment and plan (1) Atherosclerosis of [place] arteries of extremities with intermittent claudication, bilateral legs Current Visit: Yes Status: Chronic Assessment and plan: CTA aorta with run off on admission showed: Multifocal atherosclerotic disease with new occlusion of the right external iliac stent and SFA. There is also a new occlusion of the left SFA with distal reconstitution. Patient had redo right femoral/popliteal thrombectomy, left femoral endarterectomy, left femoral -right [place] popliteal bypass graft with 6 mm PTFE Distaflo on 10/10/17 Repeat CTA performed on 10/12/17 showed occluded right external iliac artery with 50-70% stenosis of the external iliac artery on the left as well as demonstration of widely patent bypass grafts. No acute bleeding was observed pedal pulses intact Cap refill <2sec vascular surgery okay to discharge patient. Patient will start xarelto at discharge continue aspirin, plavix, statin since patient will be on triple therapy at home start omeprazole at discharge (2) Postoperative anemia due to acute blood loss Current Visit: Yes Status: Resolved Assessment and plan: Hemoglobin appears stable, though slight decrease seen today No acute bleeding seen on repeat CT performed 10/12/17 Fecal Hemoccult negative on blood cart received 2 units [facility] no source found BP stable (3) Alcohol abuse Current Visit: Yes Status: Chronic Assessment and plan: Patient to continue on CIWA Continue PO vitamins (4) DVT prophylaxis Current Visit: Yes Status: Chronic Assessment and plan: Heparin SQ as no source of bleeding identified will hold heparin if further drop in Hgb seen (5) Essential hypertension Current Visit: Yes Status: Chronic Assessment and plan: Patient did have hypotension on 10/14/27 Some of his home anti-hypertensive agents were held His blood pressure returned to normal limits today Will continue his home medications (6) Protein calorie malnutrition Current Visit: Yes Status: Chronic Assessment and plan: BMI 19 eats one meal a day drinks ensure TID nutrition following patient educated on low fat, low cholesterol high protein diet Allow salt in food (just no added salt) so patient more likely to take PO Qualifiers: Protein-calorie malnutrition severity: moderate Qualified Code(s): E44.0 - Moderate protein-calorie malnutrition (7) Tobacco abuse Current Visit: Yes Status: Chronic Assessment and plan: patient educated on smoking cessation and how it will worsen his PAD - Subjective Interval history: Patient reports that he is feeling well today, though has continued to have some weakness in his right leg. He states that this is chronic in nature. Overall, he does report that he feels slightly stronger than he did previously. He denies having any pain in his leg today, he denies fever/chills, chest pain, or shortness of breath - Constitutional Vitals: Temp Pulse Resp BP Pulse Ox 98.8 F 90 20 123/74 100 10/14/17 11:21 10/14/17 12:04 10/14/17 12:02 10/14/17 12:02 10/14/17 12:02 General appearance: Present: A&O X 3, no acute distress, underweight, answers questions appropriately Exam: General: Cooperative, pleasant, no acute distress, alert and oriented 3, answers questions appropriately HEENT: Normocephalic, atraumatic, Conjunctiva pink, sclera anicteric, oral mucosa dry Respiratory: No accessory muscle usage, clear to auscultation bilaterally, no wheezes/rhonchi/rales appreciated Cardiovascular: Regular rate and rhythm, S1 and S2 present, no murmurs/rubs/ gallops/clicks appreciated GI/abdominal: Nondistended, nontender, soft, normal bowel sounds, no peritoneal signs Extremities: No calf tenderness, no pedal edema appreciated, warm, lower extremity pulses palpable and symmetrical Neurological: Alert and oriented 3, no facial droop, no focal deficits Skin: Dry, intact, normal color, incisions are clean, dry, and intact Internal Medicine: Result - Labs CBC & Chem 7: 10/14/17 04:21 10/14/17 04:21 Labs: Short CBC 10/14/17 Range/Units 04:21 WBC 8.8 (4.3-11.1) K/mcL Hgb 10.4 L (12.9-16.9) g/dL Hct 30.7 L (37.5-50.1) % Plt Count 122 L (140-400) K/mcL BMP 10/14/17 04:21 Sodium 136 Potassium 3.1 L Chloride 109 H Carbon Dioxide 24 BUN 6 Creatinine 0.52 L Glucose 91 Calcium 7.8 L Liver Function 10/14/17 Range/Units 04:21 Total Bilirubin 0.8 (0.3-1.0) mg/dL AST 39 (13-39) Units/L ALT 12 (7-52) Units/L Alkaline Phosphatase 42 (34-104) Units/L Albumin 2.4 L (3.5-5.7) g/dL - ABG Interpretation ABG results: PT/INR, D-dimer PT 10.7 Seconds (9.4-12.1) 10/10/17 06:54 - Impressions Impressions Aorta w/Runoff CTA 10/12/17 10:04 IMPRESSION: 1. Moderate aortoiliac atherosclerotic disease. Occluded right external iliac artery. There is a 50-70% stenosis of the external iliac artery on the left, likely resulting in compromise to the inflow. 2. The newly placed fem fem and right fem-pop graft are widely patent. 3. No focal popliteal disease on the right. Two-vessel runoff distally. 4. Diffuse left SFA disease with 8 cm occluded segment in the mid SFA. Diffusely narrowed reconstituted SFA and popliteal artery. Three-vessel runoff. 5. No acute findings within the abdomen or pelvis. D/ / 10/12/2017 15:06:22 Binu Estevez MD / Candy Soto Interpreting Provider: Binu Estevez MD - VTE Documentation of Mechanical Device: Intermittent pneumatic compression device Consult Discharge Plan - Plan Referrals: Job Quinn MD [Partnered Physician] - 10/25/17 1:00 pm Gaurav norris MD [Primary Care Provider] - 10/20/17 9:00 am <Alan Mantilla - Last Filed: 10/14/17 17:30> Date of Encounter: 10/14/17 - Constitutional Vitals: Temp Pulse Resp BP Pulse Ox 98.8 F 103 18 143/74 99 10/14/17 16:13 10/14/17 16:13 10/14/17 16:13 10/14/17 16:13 10/14/17 16:13 Internal Medicine: Result - Labs CBC & Chem 7: 10/14/17 04:21 10/14/17 04:21 Labs: Short CBC 10/14/17 Range/Units 04:21 WBC 8.8 (4.3-11.1) K/mcL Hgb 10.4 L (12.9-16.9) g/dL Hct 30.7 L (37.5-50.1) % Plt Count 122 L (140-400) K/mcL BMP 10/14/17 04:21 Sodium 136 Potassium 3.1 L Chloride 109 H Carbon Dioxide 24 BUN 6 Creatinine 0.52 L Glucose 91 Calcium 7.8 L Liver Function 10/14/17 Range/Units 04:21 Total Bilirubin 0.8 (0.3-1.0) mg/dL AST 39 (13-39) Units/L ALT 12 (7-52) Units/L Alkaline Phosphatase 42 (34-104) Units/L Albumin 2.4 L (3.5-5.7) g/dL - ABG Interpretation ABG results: PT/INR, D-dimer PT 10.7 Seconds (9.4-12.1) 10/10/17 06:54 - Impressions Impressions Aorta w/Runoff CTA 10/12/17 10:04 IMPRESSION: 1. Moderate aortoiliac atherosclerotic disease. Occluded right external iliac artery. There is a 50-70% stenosis of the external iliac artery on the left, likely resulting in compromise to the inflow. 2. The newly placed fem fem and right fem-pop graft are widely patent. 3. No focal popliteal disease on the right. Two-vessel runoff distally. 4. Diffuse left SFA disease with 8 cm occluded segment in the mid SFA. Diffusely narrowed reconstituted SFA and popliteal artery. Three-vessel runoff. 5. No acute findings within the abdomen or pelvis. D/ / 10/12/2017 15:06:22 Binu Estevez MD / Candy Soto Interpreting Provider: Binu Estevez MD - Attending Attestation I performed a [id number] diagnostic evaluation of this patient and my medical decision-making was reviewed with the Resident Physician, Dr Christopher Hinojosa. I agree with the documented findings, disposition and treatment plan as described except to the extent set forth below. Patient reports generalized weakness and right groin pain, slightly improved from yesterday, aching, mild crust. Physical exam: Gen: NAD, AAOx3 Heart: RRR, S1S2, no murmurs Lungs: Decreased breath sounds Abdomen: S, NT, + bowel sounds Plan: PT OT. Continue to monitor H&H. Transfuse if hemoglobin below 8. CIWA protocol. Monitor for withdrawal. Alan Mantilla MD
--- NOTE | 2017-10-14 15:53 | Electrocardiograph Report ---
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
[2017-10-14 16:44] LABS: Magnesium 1.7 mg/dL (1.6-2.6)
[2017-10-14] MEDS: *HR* OxyCODONE Immed Rel 5 MG TABLET PO PRN (20:43)
[2017-10-15 05:22] LABS: Basophils % 0.3 %; Eosinophils # 0.1 K/mcL (0.0-0.6); Eosinophils % 1.5 %; Hematocrit 29.3 % (37.5-50.1); Hemoglobin 9.8 g/dL (12.9-16.9); Immature Granulocytes % 0.9 % (0-4); Lymphocytes # 1.7 K/mcL (0.6-4.6); Lymphocytes % 22.6 %; Mean Corpuscular HGB Conc 33.4 g/dL (31.6-35.5); Mean Corpuscular Hemoglobin 32.9 pg (28.0-33.3); Mean Corpuscular Volume 98.3 fL (83.0-100.0); Monocytes # 0.9 K/mcL (0.0-1.3); Monocytes % 12.3 %; Neutrophils # 4.7 K/mcL (1.6-8.9); Platelet Count 159 K/mcL (140-400); Red Blood Count 2.98 M/mcL (4.19-5.50); Red Cell Distribution Width 15.4 % (11.5-14.5); Segmented Neutrophils % 62.4 %
[2017-10-15 05:37] LABS: BUN/Creatinine Ratio 15 (6-26); Blood Urea Nitrogen 7 mg/dL (6-20); Calcium 7.8 mg/dL (8.6-10.3); Carbon Dioxide 24 mEq/L (23-29); Chloride 107 mEq/L (98-107); Glucose 82 mg/dL (70-105); Osmolality,Calculated 283 (280-300); Sodium 138 mEq/L (136-145); eGFR For African Americans > 60 (> 60); eGFR For Non-African Americans > 60 (> 60)
[2017-10-15] MEDS: Vitamin B Complex/Vit C/Vit E 1 EACH TABLET PO SCH (09:19)
[2017-10-15] MEDS: Folic Acid 1 MG TABLET PO SCH (09:19)
[2017-10-15] MEDS: Nicotine 21 MG PATCH.TD24 TD SCH (09:19)
[2017-10-15] MEDS: Aspirin Enteric Coated 81 MG Tablet PO SCH (09:19)
[2017-10-15] MEDS: Thiamine (B-1) 100 MG TABLET PO SCH (09:19)
[2017-10-15] MEDS: Breo Ellipta 200-25 Mcg IH SCH (09:20)
[2017-10-15] MEDS: Tiotropium 18 MCG inhalation IH SCH (10:27)
--- NOTE | 2017-10-15 11:02 | Internal Med Progress Note ---
<Carlos Hinojosa - Last Filed: 10/15/17 10:59> Date of Encounter: 10/15/17 Time of Encounter: 10:45 - Assessment and plan (1) Atherosclerosis of [place] arteries of extremities with intermittent claudication, bilateral legs Current Visit: Yes Status: Chronic Assessment and plan: CTA aorta with run off on admission showed: Multifocal atherosclerotic disease with new occlusion of the right external iliac stent and SFA. There is also a new occlusion of the left SFA with distal reconstitution. Patient had redo right femoral/popliteal thrombectomy, left femoral endarterectomy, left femoral -right [place] popliteal bypass graft with 6 mm PTFE Distaflo on 10/10/17 Repeat CTA performed on 10/12/17 showed occluded right external iliac artery with 50-70% stenosis of the external iliac artery on the left as well as demonstration of widely patent bypass grafts. No acute bleeding was observed pedal pulses intact Cap refill <2sec vascular surgery okay to discharge patient Patient will start xarelto at discharge continue aspirin, plavix, statin since patient will be on triple therapy at home start omeprazole at discharge We will consult PT/OT for recommendations and evaluation (2) Postoperative anemia due to acute blood loss Current Visit: Yes Status: Resolved Assessment and plan: Slight decrease in hemoglobin seen today Patient is asymptomatic at this time No indication for transfusion No acute bleeding seen on repeat CT performed 10/12/[address] abdomen/pelvis a day Obtain additional fecal occult blood BP stable and heart rate (3) Alcohol abuse Current Visit: Yes Status: Chronic Assessment and plan: Patient to continue on CIWA Continue PO vitamins (4) DVT prophylaxis Current Visit: Yes Status: Chronic Assessment and plan: Heparin SQ as no source of bleeding identified will hold heparin if further drop in Hgb seen (5) Essential hypertension Current Visit: Yes Status: Chronic Assessment and plan: Patient did have hypotension on 10/14/27 Some of his home anti-hypertensive agents were held His blood pressure returned to normal limits today Will continue his home medications (6) Protein calorie malnutrition Current Visit: Yes Status: Chronic Assessment and plan: BMI 17 eats one meal a day drinks ensure TID nutrition following patient educated on low fat, low cholesterol high protein diet Allow salt in food (just no added salt) so patient more likely to take PO Qualifiers: Protein-calorie malnutrition severity: moderate Qualified Code(s): E44.0 - Moderate protein-calorie malnutrition (7) Tobacco abuse Current Visit: Yes Status: Chronic Assessment and plan: patient educated on smoking cessation and how it will worsen his PAD - Subjective Interval history: Patient reports feeling well today. He does report having some continued weakness and pain in his right leg, but is overall improved. He denies having fever/chills, chest pain, dyspnea, nausea, or abdominal pain. He is wondering when he might be able to be discharged. - Constitutional Vitals: Temp Pulse Resp BP Pulse Ox 98.3 F 89 16 127/65 98 10/15/17 06:50 10/15/17 06:50 10/15/17 10:27 10/15/17 10:27 10/15/17 10:27 General appearance: Present: A&O X 3, no acute distress, underweight, answers questions appropriately Exam: General: Cooperative, pleasant, no acute distress, alert and oriented 3, answers questions appropriately HEENT: Normocephalic, atraumatic, Conjunctiva pink, sclera anicteric, oral mucosa dry Respiratory: No accessory muscle usage, clear to auscultation bilaterally, no wheezes/rhonchi/rales appreciated Cardiovascular: Regular rate and rhythm, S1 and S2 present, no murmurs/rubs/ gallops/clicks appreciated GI/abdominal: Nondistended, nontender, soft, normal bowel sounds, no peritoneal signs, mild tenderness around prior incision sites, dressing over right groin appears slightly red, dressing over left groin clean Extremities: No calf tenderness, no pedal edema appreciated, warm, lower extremity pulses palpable and symmetrical, dressing and place in right medial thigh that appears clean Neurological: Alert and oriented 3, no facial droop, no focal deficits Skin: Dry, intact, normal color, incisions are clean, dry, and intact Internal Medicine: Result - Labs CBC & Chem 7: 10/15/17 03:53 10/15/17 03:53 Labs: Short CBC 10/15/17 Range/Units 03:53 WBC 7.5 (4.3-11.1) K/mcL Hgb 9.8 L (12.9-16.9) g/dL Hct 29.3 L (37.5-50.1) % Plt Count 159 (140-400) K/mcL Neutrophils # 4.7 (1.6-8.9) K/mcL BMP 10/14/17 10/15/17 04:21 03:53 Sodium 136 138 Potassium 3.1 L 3.0 L Chloride 109 H 107 Carbon Dioxide 24 24 BUN 6 7 Creatinine 0.52 L 0.47 L Glucose 91 82 Calcium 7.8 L 7.8 L Liver Function 10/14/17 Range/Units 04:21 Total Bilirubin 0.8 (0.3-1.0) mg/dL AST 39 (13-39) Units/L ALT 12 (7-52) Units/L Alkaline Phosphatase 42 (34-104) Units/L Albumin 2.4 L (3.5-5.7) g/dL - ABG Interpretation ABG results: PT/INR, D-dimer PT 10.7 Seconds (9.4-12.1) 10/10/17 06:54 - VTE Documentation of Mechanical Device: Intermittent pneumatic compression device Consult Discharge Plan - Plan Referrals: Job Quinn MD [Partnered Physician] - 10/25/17 1:00 pm Gaurav Villeda MD [Primary Care Provider] - 10/20/17 9:00 am <Alan Mantilla - Last Filed: 10/15/17 20:13> Date of Encounter: 10/15/17 - Constitutional Vitals: Temp Pulse Resp BP Pulse Ox 98.4 F 124 18 149/90 95 10/15/17 19:15 10/15/17 19:15 10/15/17 19:15 10/15/17 19:15 10/15/17 19:15 Internal Medicine: Result - Labs CBC & Chem 7: 10/15/17 14:20 10/15/17 03:53 Labs: Short CBC 10/15/17 10/15/17 Range/Units 03:53 14:20 WBC 7.5 (4.3-11.1) K/mcL Hgb 9.8 L 10.8 L (12.9-16.9) g/dL Hct 29.3 L 31.1 L (37.5-50.1) % Plt Count 159 (140-400) K/mcL Neutrophils # 4.7 (1.6-8.9) K/mcL BMP 10/15/17 03:53 Sodium 138 Potassium 3.0 L Chloride 107 Carbon Dioxide 24 BUN 7 Creatinine 0.47 L Glucose 82 Calcium 7.8 L - ABG Interpretation ABG results: PT/INR, D-dimer PT 10.7 Seconds (9.4-12.1) 10/10/17 06:54 - Impressions Impressions Abdomen/Pelvis CT 10/15/17 11:00 IMPRESSION: 1. Mild stranding of the subcutaneous fat in the right groin with small foci of gas, likely related to recent surgery. There is no formed fluid collection or abscess. Patient has had a fem-fem cross over. 2. Mild thickening of the urinary bladder wall. Please correlate with clinical symptoms of cystitis. Small foci of gas in the urinary bladder lumen are likely related to recent Ugarte catheter placement. 3. No CT finding to account for patient's decreasing hemoglobin level. Specifically, there is no evidence of retroperitoneal hematoma. D/ / 10/15/2017 15:00:05 Melvin Kohler MD / dawn Interpreting Provider: Melvin Kohler MD - Attending Attestation I performed a [id number] diagnostic evaluation of this patient and my medical decision-making was reviewed with the Resident Physician, Dr Christopher Hinojosa. I agree with the documented findings, disposition and treatment plan as described except to the extent set forth below. Physical exam: Gen: NAD, AAOx3 Heart: RRR, S1S2, no murmurs Lungs: CTABL Abdomen: S, NT, + bowel sounds Assessment and plan: Patient's hemoglobin improved appropriately posttransfusion. He is now hemodynamically stable however his hemoglobin today has been trending down. We will continue to monitor hemoglobin and hematocrit. Check stool Hemoccult. We will get PT and OT evaluation. Possible discharge tomorrow with home health if hemoglobin remains stable. Alan Mantilla MD
[2017-10-15] MEDS ORDERED: Potassium Chloride 40 MEQ, Lidocaine 1% 2 ML in D5% in Water 500 ML IVPB ONE (12:46)
[2017-10-15 14:31] LABS: Hematocrit 31.1 % (37.5-50.1); Hemoglobin 10.8 g/dL (12.9-16.9)
[2017-10-15] MEDS: *HR* OxyCODONE Immed Rel 5 MG TABLET PO PRN (20:17)
[2017-10-16] MEDS: 0.9 % Sodium Chloride 1,000 ML IVC SCH (03:54)
[2017-10-16 04:30] LABS: Basophils % 0.3 %; Eosinophils # 0.2 K/mcL (0.0-0.6); Eosinophils % 2.3 %; Hematocrit 30.9 % (37.5-50.1); Hemoglobin 10.5 g/dL (12.9-16.9); Immature Granulocytes % 1.2 % (0-4); Lymphocytes # 1.7 K/mcL (0.6-4.6); Lymphocytes % 25.1 %; Mean Corpuscular Hemoglobin 33.7 pg (28.0-33.3); Mean Platelet Volume 11.1 fL (9.4-12.4); Monocytes % 14.5 %; Neutrophils # 3.7 K/mcL (1.6-8.9); Platelet Count 184 K/mcL (140-400); Red Blood Count 3.12 M/mcL (4.19-5.50); Segmented Neutrophils % 56.6 %
[2017-10-16 04:51] LABS: BUN/Creatinine Ratio 10 (6-26); Blood Urea Nitrogen 5 mg/dL (6-20); Calcium 7.9 mg/dL (8.6-10.3); Carbon Dioxide 23 mEq/L (23-29); Chloride 109 mEq/L (98-107); Glucose 92 mg/dL (70-105); Osmolality,Calculated 283 (280-300); Potassium 3.3 mEq/L (3.5-5.1); Sodium 138 mEq/L (136-145); eGFR For African Americans > 60 (> 60); eGFR For Non-African Americans > 60 (> 60)
[2017-10-16] MEDS: Breo Ellipta 200-25 Mcg IH SCH (08:13)
[2017-10-16] MEDS: Aspirin Enteric Coated 81 MG Tablet PO SCH (08:21)
[2017-10-16] MEDS: Thiamine (B-1) 100 MG TABLET PO SCH (08:21)
[2017-10-16] MEDS: Nicotine 21 MG PATCH.TD24 TD SCH (08:21)
[2017-10-16] MEDS: Vitamin B Complex/Vit C/Vit E 1 EACH TABLET PO SCH (08:21)
[2017-10-16] MEDS: Folic Acid 1 MG TABLET PO SCH (08:22)
[2017-10-16] MEDS: Tiotropium 18 MCG inhalation IH SCH (10:10)
[2017-10-16 11:13] VITALS: BP 106/72
--- NOTE | 2017-10-16 14:22 | Discharge Summary ---
- NOTES TO OUTPATIENT PROVIDER Notes to Outpatient Provider: Follow up with PCP in 2-3 days after discharge. Recheck CBC at that time (anemia). Follow up with vascular surgery as directed. Orders not resulted at time of discharge: Pending orders 10/11/17 08:10 Occult Blood,Stool [BF] Stat Date of Encounter: 10/16/17 Time of Encounter: 14:21 - Discharge Diagnosis (1) Atherosclerosis of [place] arteries of extremities with intermittent claudication, bilateral legs Priority: Primary Status: Chronic (2) Alcohol abuse Priority: Secondary Status: Chronic (3) Essential hypertension Priority: Secondary Status: Chronic (4) Protein calorie malnutrition Priority: Secondary Status: Chronic Qualifiers: Protein-calorie malnutrition severity: moderate Qualified Code(s): E44.0 - Moderate protein-calorie malnutrition (5) Tobacco abuse Priority: Secondary Status: Chronic (6) Postoperative anemia due to acute blood loss Priority: Secondary Status: Resolved (7) DVT prophylaxis Priority: Secondary Status: Acute Hospital course: Mr. Villa is a 57 year old male admitted for recurrent occlusion of right iliofemoral system with severe disease apparently of the right superficial femoral artery. He was admitted to general medical floor and started on IV heparin. Vascular surgery was consulted. Patient had redo right femoral/ popliteal thrombectomy, left femoral endarterectomy, left femoral -right [place] popliteal bypass graft with 6 mm PTFE Distaflo on 10/10/17. He had repeat CTA performed on 10/12/17 which showed occluded right external iliac artery with 50- 70% stenosis of the external iliac artery on the left as well as demonstration of widely patent bypass grafts. No acute bleeding was observed. Hemoglobin was stable overnight on the day of discharge. He had some delirium post surgery , which was attributed to likely alcohol withdrawal. CIWA protocol was instituted and patient improved. He will continue lipitor, beta farshad, aspirin, and plavix at discharge. Per vascular surgery recommendations, he will also start xarelto 10 mg QD at discharge. He will follow up with PCP in 2- 3 days after discharged. A repeat BMP can be checked at that time (anemia). He will follow up with vascular surgery as directed. Patient has met maximum benefit of this hospitalization and will be discharged home with home health in stable condition. Discharge discussed with: patient, nurse - Time Spent with Patient Total time spent providing and/or coordinating discharge services: Greater than 30 minutes - Discharge Medications Prescriptions: Atorvastatin [Lipitor] 40 mg PO HS 14 Days #14 tablet Omeprazole [PriLOSEC] 40 mg PO DAILY 14 Days #14 cap Rivaroxaban [Xarelto] 10 mg PO 1700 14 Days #14 tablet Home Medications: Clopidogrel [Plavix] 75 mg PO DAILY #30 tablet 09/25/15 [Rx] Albuterol Sulfate [Ventolin Hfa] 2 puff IH Q4H PRN 05/24/17 [History] Metoprolol [Lopressor] 25 mg PO BID 05/24/17 [History] Nitroglycerin [Nitrostat] 0.4 mg SL Q5-6MIN PRN 05/24/17 [History] Tiotropium [place] [Spiriva Respimat] 4 gm IH DAILY 05/24/17 [History] Cilostazol [Pletal] 100 mg PO BID 10/10/17 [History] Fluticasone/Vilanterol [Breo Ellipta 200-25 Mcg INH] 1 puff IH DAILY 10/10/17 [ History] Varenicline Tartrate [Chantix Starting Month NAZARIO] 1 tab PO BID 10/10/17 [History ] Aspirin Enteric Coated [Aspirin EC] 81 mg PO DAILY tablet. 10/16/17 [Rx] Atorvastatin [Lipitor] 40 mg PO HS 14 Days #14 tablet 10/16/17 [Rx] Ipratropium/Albuterol Neb [Duoneb] 3 ml IH Q6HR PRN inhsol 10/16/17 [Rx] Omeprazole [PriLOSEC] 40 mg PO DAILY 14 Days #14 cap 10/16/17 [Rx] Rivaroxaban [Xarelto] 10 mg PO 1700 14 Days #14 tablet 10/16/17 [Rx] Allergies/Adverse Reactions: 3 Allergy/AdvReac Type Severity Reaction Status Date / Time acetaminophen [From Tylenol] AdvReac Nausea Verified 10/10/17 07:52 Date of admission: 10/10/17 06:00 Primary care physician: Gaurav Villeda MD Consults: 10/14/17 16:28 Consult to Occupational Therapy [CONS] Routine Comment: Evaluate, develop and implement POC Reason for Consult: Chronic lower extremity weakness. Assessment for possible needs as outpatient and/or placement Does patient have active BEDREST order?: No Is patient medically & hemodynamically stable?: Yes Patient assessed for mobility or mobilized this visit?: No Consult to Physical Therapy [CONS] Routine Comment: Evaluate, develop and implement POC Reason for Consult: Chronic lower extremity weakness. Assessment for possible needs as outpatient and/or placement Does patient have active BEDREST order?: No Is patient medically & hemodynamically stable?: Yes Patient assessed for mobility or mobilized this visit?: No Discharging clinician: Dilip Cunha Anticipated date of discharge: 10/16/17 - Constitutional Vitals: Temp Pulse Resp BP Pulse Ox 98.7 F 89 16 106/72 96 10/16/17 11:12 10/16/17 11:12 10/16/17 11:12 10/16/17 11:12 10/16/17 11:12 General appearance: Present: cooperative, A&O X 3, pleasant, no acute distress, underweight, answers questions appropriately - Respiratory Respiratory exam: Present: CTAB. Absent: accessory muscle use, rales, rhonchi, wheezes Additional comments: Normal WOB - Cardiovascular Cardiovascular exam: Present: RRR, +S1, +S2. Absent: diastolic murmur, gallop, rubs, systolic murmur Additional comments: No BLE edema - GI/Abdominal GI/Abdominal exam: Present: normal bowel sounds, soft. Absent: distended, hepatomegaly, mass, splenomegaly, tenderness - Psychiatric Psychiatric exam: Present: normal affect, normal mood. Absent: anxious, depressed - Skin Skin exam: Present: dry, warm. Absent: cyanosis, rash - Patient Status Disposition: Home Health Service Condition: Fair Overall status at discharge: patient is progressing back to baseline - Discharge Instructions Follow Up With: Job Quinn MD [Partnered Physician] - 10/25/17 1:00 pm Gaurav Villeda MD [Primary Care Provider] - 10/20/17 9:00 am Forms: ED Satisfaction Letter Additional Instructions: Follow up with PCP in 2-3 days after discharge. Recheck CBC at that time ( anemia). Follow up with vascular surgery as directed. - Diet and Activity Activity: as per physical therapy Diet: low fat, low cholesterol, low salt diet, other (Cardiac) - VTE Reasons for not Prescribing Prophylaxis: Medical contraindication (Anemia/ Bleeding) Documentation of Mechanical Device: Intermittent pneumatic compression device
--- NOTE | 2017-10-16 14:41 | Physician Discharge Referral ---
Home Health/Hosp Referral Info Transfer to: Home Health Provider in Charge Post Discharge: PCP - Diagnosis (1) Atherosclerosis of [place] arteries of extremities with intermittent claudication, bilateral legs Priority: Primary Status: Chronic (2) Alcohol abuse Priority: Secondary Status: Chronic (3) Essential hypertension Priority: Secondary Status: Chronic (4) Protein calorie malnutrition Priority: Secondary Status: Chronic (5) Tobacco abuse Priority: Secondary Status: Chronic (6) Postoperative anemia due to acute blood loss Priority: Secondary Status: Resolved (7) DVT prophylaxis Priority: Secondary Status: Acute - Respiratory Orders Smoking Cessation: Smoking cessation has been advised. For more information, call the [place] Tobacco Quit Line at 8-958-NFAF-NOW. - Diet/Nutrition Diet/Nutrition Orders: No Added Salt (RICARDO), Cardiac - Activity Activity: List: Per physical therapy - Services Needed Following services are medically necessary services: Nursing, Home Health Aide, Physical Therapy, Occupational Therapy - Transfer Medications Prescriptions: Atorvastatin [Lipitor] 40 mg PO HS 14 Days #14 tablet Omeprazole [PriLOSEC] 40 mg PO DAILY 14 Days #14 cap Rivaroxaban [Xarelto] 10 mg PO 1700 14 Days #14 tablet Home Medications: Clopidogrel [Plavix] 75 mg PO DAILY #30 tablet 09/25/15 [Rx] Albuterol Sulfate [Ventolin Hfa] 2 puff IH Q4H PRN 05/24/17 [History] Metoprolol [Lopressor] 25 mg PO BID 05/24/17 [History] Nitroglycerin [Nitrostat] 0.4 mg SL Q5-6MIN PRN 05/24/17 [History] Tiotropium [place] [Spiriva Respimat] 4 gm IH DAILY 05/24/17 [History] Cilostazol [Pletal] 100 mg PO BID 10/10/17 [History] Fluticasone/Vilanterol [Breo Ellipta 200-25 Mcg INH] 1 puff IH DAILY 10/10/17 [ History] Varenicline Tartrate [Chantix Starting Month NAZARIO] 1 tab PO BID 10/10/17 [History ] Aspirin Enteric Coated [Aspirin EC] 81 mg PO DAILY tablet. 10/16/17 [Rx] Atorvastatin [Lipitor] 40 mg PO HS 14 Days #14 tablet 10/16/17 [Rx] Ipratropium/Albuterol Neb [Duoneb] 3 ml IH Q6HR PRN inhsol 10/16/17 [Rx] Omeprazole [PriLOSEC] 40 mg PO DAILY 14 Days #14 cap 10/16/17 [Rx] Rivaroxaban [Xarelto] 10 mg PO 1700 14 Days #14 tablet 10/16/17 [Rx] Allergies/Adverse Reactions: 3 Allergy/AdvReac Type Severity Reaction Status Date / Time acetaminophen [From Tylenol] AdvReac Nausea Verified 10/10/17 07:52 Certification: Further, I certify that my clinical findings support that this patient is homebound (i.e. absences from home require considerable and taxing effort and are for medical reasons or denominational services or infrequently or short duration when for other reasons) because: severe atherosclerosis of [place] arteries of BLE with intermittent claudication, alcohol abuse, HTN, and protein calorie malnutrition. Homebound Reason: Patient requires assistance of a person or device to safely leave home, Leaving home requires considerable and taxing effort due to condition, Severity of cardiac or pulmonary status limits activity tolerance Attestation: My signature below is to certify that this patient is under my care and that I, or nurse practitioner, or a physician's medical assistant dermatology working with me, has a face-to -face encounter with this patient.
== END 2017-10-16 15:38 | disposition home health service (06) | DRG 181 ==
LOC: EMEROO 02:34 → 2SOUTHHOLD 02:34 → SUATTDRO 06:00 → 2SOUTHHOLD 06:46 → 2NNU 21:18
PROVIDERS: ADMIT Internal Medicine Hematology & Oncology; ATTEND Internal Medicine

== ENCOUNTER 2019-04-20 05:20 | Inpatient (IN) ==
[2019-04-20] MEDS: 0.9 % Sodium Chloride 1,000 ML IVC SCH ×4 (06:28→16:51)
[2019-04-20 06:38] LABS: Nucleated Red Blood Cells 0.1 /100 WBC (0)
[2019-04-20 06:40] LABS: Hematocrit 49.3 % (37.5-50.1); Hemoglobin 15.7 g/dL (12.9-16.9); Mean Corpuscular HGB Conc 31.8 g/dL (31.6-35.5); Mean Corpuscular Hemoglobin 36.5 pg (28.0-33.3); Mean Corpuscular Volume 114.7 fL (83.0-100.0); Mean Platelet Volume 11.8 fL (9.4-12.4); Platelet Count 152 K/mcL (140-400); Red Cell Distribution Width 14.1 % (11.5-14.5); White Blood Count 27.9 K/mcL (4.3-11.1)
[2019-04-20 07:14] LABS: Troponin I 0.8 ng/mL (< 0.04)
[2019-04-20 07:18] LABS: Lymphocytes # 4.5 K/mcL (0.6-4.6); Monocytes # 2.8 K/mcL (0.0-1.3); Neutrophils # 20.7 K/mcL (1.6-8.9); Platelet Estimate Normal (Normal)
[2019-04-20 07:19] LABS: Anisocytosis 1+ (Not Present)
[2019-04-20] MEDS ORDERED: Piperacillin/Tazobactam 3.375 GM in 0.9 % Sodium Chloride Mini Bag 100 ML IVPB ONE (07:22)
[2019-04-20 07:47] LABS: Acetaminophen < 10 mcg/mL (10-20); Alanine Aminotransferase 17 Units/L (7-52); Albumin 2.1 g/dL (3.5-5.7); Albumin/Globulin Ratio 1.1 (1.1-2.2); Alkaline Phosphatase 47 Units/L (34-104); Aspartate Amino Transferase 44 Units/L (13-39); BUN/Creatinine Ratio 16 (6-26); Bilirubin,Direct 0.2 mg/dL (0.0-0.2); Bilirubin,Indirect 0.4 mg/dL (0.0-1.2); Bilirubin,Total 0.6 mg/dL (0.3-1.0); Blood Urea Nitrogen 19 mg/dL (6-20); Calcium 6.9 mg/dL (8.6-10.3); Chloride 116 mEq/L (98-107); Ethanol < 10 mg/dL (Less than 10); Glucose 111 mg/dL (70-105); Osmolality,Calculated 303 (280-300); Salicylate < 2.5 mg/dL (15.0-30.0); Sodium 145 mEq/L (136-145); Total Protein 4.1 g/dL (6.4-8.9); eGFR For African Americans > 60 (> 60); eGFR For Non-African Americans > 60 (> 60)
[2019-04-20 07:50] LABS: Carbon Dioxide 9 mEq/L (23-29)
[2019-04-20] MEDS ORDERED: Perflutren Lipid Microsphere 1.3 ML in 0.9 % Sodium Chloride 8.7 ML IVP ONE (08:14)
[2019-04-20] MEDS ORDERED: *HR* Ketamine 500 MG/5 ML MDV IVP ONE (08:46)
[2019-04-20] MEDS ORDERED: Norepinephrine 4 MG in 0.9 % Sodium Chloride 250 ML IVC SCH (09:15)
[2019-04-20] MEDS ORDERED: Artificial Tears SOLN 15 ML BOTTLE BOTH EYES PRN (09:16)
[2019-04-20] MEDS ORDERED: Naloxone 0.4 MG/ML INJ IVP PRN (09:16)
[2019-04-20] MEDS ORDERED: 0.9 % Sodium Chloride 1,000 ML IVC SCH (09:30)
[2019-04-20] MEDS ORDERED: Dexmedetomidine HCl 400 MCG/100 ML MLS IVC SCH (09:30)
[2019-04-20] MEDS: Thiamine (B-1) 100 MG, Folic Acid 1 MG, MVI, adult with vitamin K 10 ML in 0.9 % Sodi... IVPB SCH ×2 (09:48→17:36)
[2019-04-20] MEDS ORDERED: Dexmedetomidine HCl 400 MCG/100 ML MLS IVC ONE (09:58)
[2019-04-20] MEDS ORDERED: Vancomycin (wt based) 1,000 MG VIAL IVPB SCH (10:00)
[2019-04-20 10:13] LABS: ABG Base Excess -22 mEq/L (-2 to 3); ABG HCO3 9 mEq/L (21-27); ABG Oxygen Saturation 100 % (95-98); ABG PCO2 34 mmHg (35-45); ABG PH 7.01 pH Units (7.32-7.45); ABG PO2 416 mmHg (85-104); ABG TCO2 10 mEq/L (20-26); Blood Gas Modality ASSIST CONTROL; Blood Gas VT 450 cc
[2019-04-20] MEDS: Sodium Bicarbonate 50 MEQ/50 ML VIAL ONE (10:17)
[2019-04-20] MEDS ORDERED: Sodium Bicarbonate 150 MEQ in D5% in Water 1,000 ML IVC SCH (10:30)
[2019-04-20 11:26] LABS: ABG Base Excess -15 mEq/L (-2 to 3); ABG HCO3 13 mEq/L (21-27); ABG Oxygen Saturation 75 % (95-98); ABG PCO2 33 mmHg (35-45); ABG PH 7.18 pH Units (7.32-7.45); ABG PO2 49 mmHg (85-104); ABG TCO2 14 mEq/L (20-26); Blood Gas VT 500 cc
[2019-04-20 11:35] LABS: ABG Base Excess -15 mEq/L (-2 to 3); ABG HCO3 11 mEq/L (21-27); ABG Oxygen Saturation 99 % (95-98); ABG PCO2 29 mmHg (35-45); ABG PH 7.21 pH Units (7.32-7.45); ABG PO2 163 mmHg (85-104); ABG TCO2 12 mEq/L (20-26); Blood Gas VT 500 cc
[2019-04-20] MEDS ORDERED: *HR* Heparin 5,000 UNIT/ML VIAL IVP PRN ×2 (12:27)
[2019-04-20] MEDS ORDERED: *HR* Heparin 5,000 UNIT/ML VIAL IVP ONE (12:27)
[2019-04-20] MEDS ORDERED: Heparin 25,000 UNIT/250 ML D5W 25,000 UNIT/250 ML IV.SOLN IVC SCH (12:30)
[2019-04-20] MEDS: Artificial Tears SOLN 15 ML BOTTLE BOTH EYES SCH ×2 (12:41→16:52)
[2019-04-20] MEDS ORDERED: *HR* LORazepam 2 MG/ML VIAL IVP PRN (13:05)
[2019-04-20] MEDS ORDERED: FentaNYL (PF) 1,000 MCG in 0.9 % Sodium Chloride 80 ML IVC SCH (14:45)
[2019-04-20 15:35] LABS: Alanine Aminotransferase 319 Units/L (7-52); Albumin 2.1 g/dL (3.5-5.7); Albumin/Globulin Ratio 1.2 (1.1-2.2); Alkaline Phosphatase 44 Units/L (34-104); Aspartate Amino Transferase 713 Units/L (13-39); BUN/Creatinine Ratio 20 (6-26); Bilirubin,Total 0.9 mg/dL (0.3-1.0); Blood Urea Nitrogen 28 mg/dL (6-20); Calcium 5.5 mg/dL (8.6-10.3); Carbon Dioxide 15 mEq/L (23-29); Chloride 116 mEq/L (98-107); Globulin 1.7 g/dL (2.4-3.5); Glucose 206 mg/dL (70-105); Osmolality,Calculated 313 (280-300); Potassium 5.4 mEq/L (3.5-5.1); Sodium 146 mEq/L (136-145); Total Protein 3.8 g/dL (6.4-8.9); eGFR For African Americans > 60 (> 60); eGFR For Non-African Americans 51 (> 60)
[2019-04-20 15:49] LABS: Thyroid Stimulating Hormone 0.823 mcIU/mL (0.340-5.600)
[2019-04-20 15:51] LABS: Triiodothyronine (T3) Free 3.17 pg/mL (2.50-3.90)
[2019-04-20] MEDS ORDERED: Piperacillin/Tazobactam 3.375 GM in 0.9 % Sodium Chloride Mini Bag 100 ML IVPB SCH (16:00)
[2019-04-20] MEDS ORDERED: *HR* Heparin 5,000 UNIT/ML VIAL SQ SCH (18:00)
[2019-04-20] MEDS ORDERED: Aminoglycoside Consult 1 EACH MC ONE (19:37)
[2019-04-20 19:45] VITALS: BP 51/38
[2019-04-20] MEDS ORDERED: Chlorhexidine Rinse 15 ML MOUTHWASH MM SCH (21:00)
[2019-04-21] MEDS ORDERED: Pantoprazole 40 MG VIAL IVP SCH (09:00)
[2019-04-23 15:28] LABS: CK-BB (CK isoenzymes) 0 % (0-0); CK-MB (CK isoenzymes) 0 % (0-4); CK-MM (CK-isoenzymes) 100 % (96-100)
[2019-04-23 19:28] LABS: Amphetamines NEGATIVE ng/mL (Cutoff 30); Barbiturates NEGATIVE ng/mL (Cutoff 75); Benzodiazepines NEGATIVE ng/mL (Cutoff 75); Buprenorphine NEGATIVE ng/mL (Cutoff 1); Cocaine NEGATIVE ng/mL (Cutoff 30); Methadone NEGATIVE ng/mL (Cutoff 40); Methamphetamines NEGATIVE ng/mL (Cutoff 30); Opiates NEGATIVE ng/mL (Cutoff 30); Phencyclidine NEGATIVE ng/mL (Cutoff 15)
[2019-04-24 10:42] LABS: CK Total (Ck Isoenzymes) 14673 U/L (20-200)
== END 2019-04-20 19:38 | disposition expired | DRG 720 ==
LOC: EMEROOARM 05:20 → ICNU 09:57
PROVIDERS: ADMIT Pediatrics; ATTEND Pediatrics